=== PATIENT | female | born 1960 | race Caucasian/White ===

== ENCOUNTER 2016-11-18 09:24 | Emergency (ER) | payer MEDICARE, MEDICAID ==
[~2016-11-18] VITALS: Ht 175.3 cm; Wt 84.0 kg
[~2016-11-18 09:24] MED LIST: CLON1TAB PO; DEPA500T3 PO; IBUP-232 PO; OMEP20TA PO; TAMO20TA6 PO; VENL75TA PO; VENTAER INH
[2016-11-18 09:32] VITALS: BP 121/82; PULSE 65; RESP 18; TEMP 97.4; O2SAT 100
--- NOTE | 2016-11-18 10:37 | PD ---
HPI Chief Complaint: Headache Time Seen by Provider: 09:54 Travel History International Travel<30 days: No Contact w/Intl Traveler<30days: No Traveled to known affect area: No History of Present Illness HPI This is a 56 year old female who presents to the emergency department with migraine. She reports she woke up with a headache, throbbing, constant, moderate severity associated with nausea and vomiting this morning. She reports she feels shaky and she is sensitive to light. Pt. has had migraines in the past but she has never had as much persistent nausea following her migraines so she came to the hospital. Pt. also has had some loose stools all week. Her roommate was recently diagnosed with a stomach virus last week, and the patient suspects she may have a combination of things causing her symptoms. PFSH Past Medical History Hx Anticoagulant Therapy: No Arthritis: No Asthma: No Autoimmune Disease: No Anxiety: Yes Depression: Yes Heart Rhythm Problems: No Cancer: Yes (LEFT BREAST: 2013) Cardiovascular Problems: No High Cholesterol: Yes Chemotherapy: No Chest Pain: Yes Congestive Heart Failure: No COPD: No Cerebrovascular Accident: No Diabetes: No Diminished Hearing: No Endocrine: No Gastrointestinal Disorders: No GERD: Yes Genitourinary: Yes Headaches: Yes (MIGRAINES) Hiatal Hernia: No Heparin Induced Thrombocytopen: No Hypertension: No Immune Disorder: No Implanted Vascular Access Dvce: No Kidney Stones: No Musculoskeletal: Yes (HX OF TORN ROTATOR CUFF) Neurologic: No Psychiatric: Yes (panic disorder, anorexia as teen) Reproductive: No Respiratory: No Immunizations Current: Yes Migraines: Yes Radiation Therapy: Yes Renal Failure: No Seizures: No Sickle Cell Disease: No Sleep Apnea: Yes Thyroid Disease: No Ulcer: Yes (YOUNGER) Influenza Vaccination: No ?: Not LMP: Ayesha- Menopausal: Yes : 0 Past Surgical History Abdominal Surgery: No AICD: No Arteriovenous Shunt: No Cardiac Surgery: No Ear Surgery: No Endocrine Surgery: No Eye Surgery: No Genitourinary Surgery: No Gynecologic Surgery: No Hysterectomy: No Insulin Pump: Yes Joint Replacement: No Neurologic Surgery: No Oral Surgery: No Pacemaker: No Thoracic Surgery: No Other Surgery: Yes ( BILATERAL LUMPECTOMY CA LT BREAST) Social History Alcohol Use: Yes (RARE) Tobacco Use: Yes (1 PPD) Substance Use: No Allergies-Medications (Allergen,Severity, Reaction): Coded Allergies: Codeine (Verified Allergy, Mild, Rash, 11/18/16) Sulfa (Verified Allergy, Mild, SKIN RASH, 11/18/16) Uncoded Allergies: TAPE (Allergy, Mild, BLISTERS, 09/12/16) . Reported Meds & Prescriptions Reported Meds & Active Scripts Active Reported Tamoxifen (Tamoxifen Citrate) 20 Mg Tab 20 Mg PO DAILY Effexor (Venlafaxine HCl) 75 Mg Tab 75 Mg PO HS Depakote ER (Divalproex Sodium) 500 Mg Antoni 500 Mg PO HS Clonazepam 1 Mg Tab 1 Mg PO HS Review of Systems Except as stated in HPI: all other systems reviewed are Neg Physical Exam Narrative GENERAL:Well appearing, no acute distress SKIN: Warm and dry. HEAD: Atraumatic. Normocephalic. EYES: Pupils equal and round. No injection or drainage. ENT: Moist mucous membranes NECK: Trachea midline. CARDIOVASCULAR: Regular rate and rhythm. No murmur appreciated. RESPIRATORY: Clear to auscultation. Breath sounds equal bilaterally. GASTROINTESTINAL: Abdomen soft, non-tender, nondistended. MUSCULOSKELETAL: No obvious deformities. NEUROLOGICAL: Awake and alert. No obvious cranial nerve deficits. Moving all extremities. PSYCHIATRIC: Appropriate mood and affect; insight and judgment normal. Data Data Last Documented VS Vital Signs Date Time Temp Pulse Resp B/P Pulse Ox O2 Delivery O2 Flow Rate FiO2 11/18/16 09:32 97.4 65 18 121/82 100 Orders Prochlorperazine Inj (Compazine Inj) (11/18/16 10:45) Diphenhydramine Inj (Benadryl Inj) (11/18/16 10:45) Sodium Chlor 0.9% 1000 Ml Inj (Ns 1000 M (11/18/16 10:45) Ketorolac Inj (Toradol Inj) (11/18/16 10:45) Complete Blood Count With Diff (11/18/16 11:00) Comprehensive Metabolic Panel (11/18/16 11:00) Labs Laboratory Tests Test 11/18/16 11:18 White Blood Count 6.9 TH/MM3 Red Blood Count 4.15 MIL/MM3 Hemoglobin 12.4 GM/DL Hematocrit 37.6 % Mean Corpuscular Volume 90.7 FL Mean Corpuscular Hemoglobin 30.0 PG Mean Corpuscular Hemoglobin 33.1 % Concent Red Cell Distribution Width 12.2 % Platelet Count 177 TH/MM3 Mean Platelet Volume 8.1 FL Neutrophils (%) (Auto) 62.7 % Lymphocytes (%) (Auto) 30.5 % Monocytes (%) (Auto) 5.4 % Eosinophils (%) (Auto) 0.7 % Basophils (%) (Auto) 0.7 % Neutrophils # (Auto) 4.4 TH/MM3 Lymphocytes # (Auto) 2.1 TH/MM3 Monocytes # (Auto) 0.4 TH/MM3 Eosinophils # (Auto) 0.0 TH/MM3 Basophils # (Auto) 0.0 TH/MM3 CBC Comment DIFF FINAL Differential Comment Sodium Level 147 MEQ/L Potassium Level 4.2 MEQ/L Chloride Level 113 MEQ/L Carbon Dioxide Level 25.8 MEQ/L Anion Gap 8 MEQ/L Blood Urea Nitrogen 13 MG/DL Creatinine 0.81 MG/DL Estimat Glomerular Filtration 74 ML/MIN Rate Random Glucose 100 MG/DL Calcium Level 7.7 MG/DL Total Bilirubin 0.2 MG/DL Aspartate Amino Transf 10 U/L (AST/SGOT) Alanine Aminotransferase 16 U/L (ALT/SGPT) Alkaline Phosphatase 33 U/L Total Protein 5.7 GM/DL Albumin 2.9 GM/DL [facility] Medical Decision Making Medical Screen Exam Complete: Yes Emergency Medical Condition: Yes Interpretation(s) Afebrile, no tachycardia, normotensive No leukocytosis Mild hypernatremia, low albumin Differential Diagnosis Migraine, tension headache, dehydration, gastroenteritis Narrative Course This is a 56-year-old female who has a history of migraines who presents to the emergency department with headache associated with vomiting and loose stools. Her roommate was sick with a GI bug earlier this week. She has a normal neurologic exam. She is placed on a monitor and an IV was established. Labs were obtained which were unremarkable. She was given Compazine, Toradol and Benadryl as well as IV hydration. She feels much better. I think she is appropriate for outpatient symptomatic management. Patient was discharged home. Diagnosis Primary Impression: Migraine Qualified Code: G43.009 - Migraine without aura and without status migrainosus , not intractable Additional Impression: Gastroenteritis Patient Instructions: General Instructions Additional Instructions: If you develop lightheadedness, dizziness, persistent vomiting, inability to eat , or severe abdominal pain return to the emergency department. Followup with your primary care physician in 2-3 days if your symptoms have not resolved. Wash your hands agressively after using the restroom as to not spread your illness to others. Do not return to work until your symptoms have resolved. Take Zofran as needed for nausea. Med/Other Pt SpecificInfo: Prescription(s) given Scripts Naproxen 500 Mg [id number] Mg PO BID PRN (PAIN SCALE 4 TO 10) #20 TAB Prov:Yamilka Hanks MD 11/18/16 Ondansetron Odt (Zofran Odt)4 Mg Tab4 Mg SL Q6HR PRN (Nausea/Vomiting) #15 TAB Prov:Yamilka Hanks MD 11/18/16 Disposition: 01 DISCHARGE HOME Condition: Stable Yamilka Hanks MD Nov 18, 2016 10:31
[2016-11-18] MEDS ORDERED: SODIUM CHLOR 0.9% 1000 ML INJ 1,000 ML IV ONE (10:45)
[2016-11-18] MEDS ORDERED: PROCHLORPERAZINE INJ 10 MG/2 ML VIAL IVS ONE (10:45)
[2016-11-18] MEDS ORDERED: KETOROLAC TROMETHAMINE 30 MG/ML (IVP) VIAL IV PUSH ONE (10:45)
[2016-11-18] MEDS ORDERED: diphenhydrAMINE HCL 50 MG/ML VIAL IV PUSH ONE (10:45)
[2016-11-18 11:25] LABS: AUTOMATED NEUTROPHIL # 4.4 TH/MM3 (1.8-7.7); BASOPHIL % 0.7 % (0.0-2.0); EOSINOPHIL % 0.7 % (0.0-4.0); HEMATOCRIT 37.6 % (35.0-46.0); HEMO FLAGS DIFF FINAL; LYMPH % 30.5 % (9.0-44.0); LYMPHOCYTE # 2.1 TH/MM3 (1.0-4.8); MEAN CELL VOLUME 90.7 FL (80.0-100.0); MEAN CORPUSCULAR HGB CONC 33.1 % (32.0-36.0); MONO % 5.4 % (0.0-8.0); NEUT % 62.7 % (16.0-70.0); PLATELET COUNT 177 TH/MM3 (150-450); RED BLOOD COUNT 4.15 MIL/MM3 (4.00-5.30); RED CELL DISTRIBUTION WIDTH 12.2 % (11.6-17.2); WHITE BLOOD COUNT 6.9 TH/MM3 (4.0-11.0)
[2016-11-18 11:33] LABS: CHLORIDE 113 MEQ/L (98-107); POTASSIUM 4.2 MEQ/L (3.5-5.1); SODIUM (NA) 147 MEQ/L (136-145)
[2016-11-18 11:37] LABS: ANION GAP 8 MEQ/L (5-15); BICARBONATE 25.8 MEQ/L (21.0-32.0); BLOOD UREA NITROGEN 13 MG/DL (7-18)
[2016-11-18 11:40] LABS: ALT (GPT) 16 U/L (10-53); AST (GOT) 10 U/L (15-37); GLOMERULAR FILTRATION RATE 74 ML/MIN (>89)
[2016-11-18 11:41] LABS: TOTAL BILIRUBIN ADULT 0.2 MG/DL (0.2-1.0)
[2016-11-18 11:42] LABS: ALKALINE PHOSPHATASE 33 U/L (45-117)
[2016-11-18] MEDS ORDERED: ZOFR4TAB3 SL (11:58)
[2016-11-18] MEDS ORDERED: NAPR500T PO (11:58)
[2016-11-18 12:28] VITALS: BP 129/78; RESP 18
== END 2016-11-18 12:39 | disposition home or self-care (01) ==
LOC: PHED 09:24
DX: G43.909 Migraine, unspecified, not intractable, without status migrainosus (principal); K52.9 Noninfective gastroenteritis and colitis, unspecified; E78.00 Pure hypercholesterolemia, unspecified; G47.30 Sleep apnea, unspecified; F17.210 Nicotine dependence, cigarettes, uncomplicated
CPT/HCPCS: 80053; 85025; 96361; 96374; 96375; 99284; J0780; J1200; J1885; J7030

== ENCOUNTER 2016-12-01 17:41 | Emergency (ER) | payer MEDICARE, MEDICAID ==
[~2016-12-01] VITALS: Ht 175.3 cm; Wt 81.5 kg
[~2016-12-01 17:41] MED LIST changes: -IBUP-232 PO; +NAPR500T PO; -OMEP20TA PO; -VENTAER INH; +ZOFR4TAB3 SL
[2016-12-01 18:09] VITALS: BP 121/72; PULSE 72; RESP 16; TEMP 98.1; O2SAT 98
--- NOTE | 2016-12-01 18:36 | PD ---
HPI Chief Complaint: Cold / Flu Symptoms Time Seen by Provider: 18:35 Travel History International Travel<30 days: No Contact w/Intl Traveler<30days: No Traveled to known affect area: No History of Present Illness HPI 56-year-old female presents to the emergency department for 2 separate issues. First, the patient states she has had cold symptoms since Friday, 4 days ago. She reports cough, congestion, bodyaches. She does report a fever last night which resolved with Aleve. Patient also states that today, her pitbull hit her in the nose with his head. She reports pain to the nose since then. She denies any bleeding. She does report a history of a broken nose in the past. Patient reports history of migraines, history of breast cancer, anxiety. PFSH Past Medical History Hx Anticoagulant Therapy: No Arthritis: No Asthma: No Autoimmune Disease: No Anxiety: Yes Depression: Yes Heart Rhythm Problems: No Cancer: Yes (LEFT BREAST: 2012) Cardiovascular Problems: No High Cholesterol: Yes Chemotherapy: No Chest Pain: Yes Congestive Heart Failure: No COPD: No Cerebrovascular Accident: No Diabetes: No Diminished Hearing: No Endocrine: No Gastrointestinal Disorders: No GERD: Yes Genitourinary: Yes Headaches: Yes (MIGRAINES) Hiatal Hernia: No Heparin Induced Thrombocytopen: No Hypertension: No Immune Disorder: No Implanted Vascular Access Dvce: No Kidney Stones: No Musculoskeletal: Yes (HX OF TORN ROTATOR CUFF) Neurologic: No Psychiatric: Yes (panic disorder, anorexia as teen) Reproductive: No Respiratory: No Immunizations Current: Yes Migraines: Yes Radiation Therapy: Yes Renal Failure: No Seizures: No Sickle Cell Disease: No Sleep Apnea: Yes Thyroid Disease: No Ulcer: Yes (YOUNGER) Tetanus Vaccination: < 5 Years ?: Not Menopausal: Yes : 0 Past Surgical History Abdominal Surgery: No AICD: No Arteriovenous Shunt: No Cardiac Surgery: No Ear Surgery: No Endocrine Surgery: No Eye Surgery: No Genitourinary Surgery: No Gynecologic Surgery: No Hysterectomy: No Insulin Pump: Yes Joint Replacement: No Neurologic Surgery: No Oral Surgery: No Pacemaker: No Thoracic Surgery: No Other Surgery: Yes ( BILATERAL LUMPECTOMY CA LT BREAST) Social History Alcohol Use: Yes (RARE) Tobacco Use: Yes (1 PPD) Substance Use: No Allergies-Medications (Allergen,Severity, Reaction): Coded Allergies: Codeine (Verified Allergy, Mild, Rash, 2/19/17) Sulfa (Verified Allergy, Mild, SKIN RASH, 12/01/16) Uncoded Allergies: TAPE (Allergy, Mild, BLISTERS, 09/12/16) . Reported Meds & Prescriptions Reported Meds & Active Scripts Active Reported Tamoxifen (Tamoxifen Citrate) 20 Mg Tab 20 Mg PO DAILY Effexor (Venlafaxine HCl) 75 Mg Tab 75 Mg PO HS Depakote ER (Divalproex Sodium) 500 Mg Antoni 500 Mg PO HS Clonazepam 1 Mg Tab 1 Mg PO HS Review of Systems Except as stated in HPI: all other systems reviewed are Neg Physical Exam Narrative GENERAL: Well-developed well-nourished female patient, ambulatory. Afebrile. Vital signs stable. SKIN: Warm and dry. HEAD: Normocephalic. Patient has tenderness over nose without obvious deformity. ENT: Mucosa pink and moist. No erythema or exudates. No uvular edema. No uvular , palatal, or tonsillar deviation. Airway patent. Nasal turbinates appear normal without nasal blood, purulent drainage or septal hematoma. Bilateral tympanic membranes are clear without erythema or perforation. EYES: No scleral icterus. No injection or drainage. NECK: Supple, trachea midline. No JVD or lymphadenopathy. CARDIOVASCULAR: Regular rate and rhythm without murmurs, gallops, or rubs. RESPIRATORY: Breath sounds equal bilaterally. No accessory muscle use. Lungs sounds are clear to auscultation GASTROINTESTINAL: Abdomen soft, non-tender, nondistended. MUSCULOSKELETAL: No cyanosis, or edema. BACK: Nontender without obvious deformity. No CVA tenderness. Data Data Last Documented VS Vital Signs Date Time Temp Pulse Resp B/P Pulse Ox O2 Delivery O2 Flow Rate FiO2 12/01/16 18:09 98.1 72 16 121/72 98 Orders Chest, Pa & Lat (12/01/16 ) Group A Rapid Strep Screen (12/01/16 18:34) Ct Facial Bones W/O Iv Cont (12/01/16 ) Strep Culture (Group A) (12/01/16 18:45) MDM Medical Decision Making Medical Screen Exam Complete: Yes Emergency Medical Condition: Yes Medical Record Reviewed: Yes Differential Diagnosis Viral URI versus strep pharyngitis versus pneumonia versus nasal contusion versus nasal fracture Narrative Course 56-year-old female presents to the emergency department for evaluation of cold symptoms for 4 days as well as nose injury that occurred today. Chest x-ray and strep swab are ordered and pending. CT of the facial bones is ordered and pending. Chest x-ray shows no acute disease. Strep is negative. Ct of the facial bones shows no acute findings. Patient is stable for discharge. She does appear well on exam. Patient started on viral URI and nasal contusion. She she is instructed take Aleve or ibuprofen [id number] follow up with her primary care physician. She is instructed to return for any acute worsening of symptoms. Patient is agreeable. The patient was discharged in stable condition with instructions, including return instructions and follow up instructions. Diagnosis Primary Impression: Upper respiratory infection Qualified Code: J06.9 - Viral upper respiratory tract infection Additional Impression: Nasal contusion Referrals: Primary Care Physician call for appointment Patient Instructions: Contusion in Adults (ED), General Instructions, Upper Respiratory Infection (ED) Additional Instructions: Ice for 20 minutes 4-5 times daily. [id number] Tylenol/ibuprofen as needed for pain. Follow-up with your primary care physician. Return to the emergency department for any acute worsening of symptoms. Med/Other Pt SpecificInfo: No Change to Meds Disposition: 01 DISCHARGE HOME Condition: Stable ElliottElizabeth Dec 01, 2016 18:36
--- NOTE | 2016-12-01 19:33 | RADHPO ---
EXAM DATE/TIME: 12/01/2016 18:56 [facility] COMPARISON: No previous studies available for comparison. INDICATIONS : Mid facial trauma. RADIATION DOSE: 29.99 CTDIvol (mGy) MEDICAL HISTORY : Carcinoma, breast. Nose fracture. Fibromyalgia. SURGICAL HISTORY : None. ENCOUNTER: Initial ACUITY: 1 day PAIN SCORE: 7/10 LOCATION: facial TECHNIQUE: Volumetric scanning of the facial bones was performed. Using automated exposure control and adjustme nt of the mA and/or kV according to patient size, radiation dose was kept as low as reasonably achiev able to obtain optimal diagnostic quality images. FINDINGS: ORBITS: The orbital and infraorbital osseous structures are intact. The retroconal structures have a normal configuration. No radiopaque foreign bodies are seen. NASAL BONE: The nasal bone and maxillary spine are intact ZYGOMATIC ARCHES: Symmetric without evidence of fracture. SINUSES: The maxillary, ethmoid and frontal sinuses are intact. No air-fluid levels seen. NASAL CAVITY: The nasal septum is intact and midline. The lacrimal ducts are intact. SOFT TISSUES: No radiopaque foreign bodies seen. No soft-tissue swelling is seen. INTRACRANIAL: No intracranial air seen. CRIBIFORM PLATE: Grossly intact. CONCLUSION: 1. No acute findings. Moise Mata MD on December 01, 2016 at 19:29 Board Certified Radiologist. This report was verified electronically.
--- NOTE | 2016-12-01 19:35 | RADHPO ---
EXAM DATE/TIME: 12/01/2016 18:52 [facility] COMPARISON: No previous studies available for comparison. INDICATIONS : Congestion. Cough. MEDICAL HISTORY : None. SURGICAL HISTORY : None. ENCOUNTER: Initial ACUITY: 3 days PAIN SCORE: 6/10 LOCATION: Bilateral chest FINDINGS: PA and lateral views of the chest demonstrate the lungs to be symmetrically aerated without evidence of mass, infiltrate or effusion. The cardiomediastinal contours are unremarkable. Osseous structure s are intact. CONCLUSION: No acute disease. Moise Mata MD on December 01, 2016 at 19:33 Board Certified Radiologist. This report was verified electronically.
[2016-12-01] MEDS ORDERED: KETOROLAC TROMETHAMINE 60 MG/2 ML (IM) VIAL IM ONE (20:00)
== END 2016-12-01 20:03 | disposition home or self-care (01) ==
LOC: PHED 17:41 → PHEFT 20:03
DX: J06.9 Acute upper respiratory infection, unspecified (principal); S00.33XA Contusion of nose, initial encounter; F17.200 Nicotine dependence, unspecified, uncomplicated; W54.1XXA Struck by dog, initial encounter
CPT/HCPCS: 70486; 71020; 87081; 87880; 96372; 99284; J1885

== ENCOUNTER 2016-12-09 20:05 | Emergency (ER) | payer MEDICARE, MEDICAID ==
[~2016-12-09] VITALS: Ht 175.3 cm; Wt 82.2 kg
[~2016-12-09 20:05] MED LIST changes: -NAPR500T PO; -ZOFR4TAB3 SL
[2016-12-09] MEDS ORDERED: SODIUM CHLOR 0.9% 1000 ML INJ 1,000 ML IV SCH (20:13)
[2016-12-09] MEDS ORDERED: diphenhydrAMINE HCL 50 MG/ML VIAL IM ONE (20:15)
[2016-12-09] MEDS ORDERED: methylPREDNISolone SOD SUCC 125 MG/2 ML VIAL IM ONE (20:15)
[2016-12-09] MEDS ORDERED: EPINEPHrine HCL (1:1000) 1 MG/ML VIAL IM ONE (20:15)
[2016-12-09] MEDS ORDERED: RESP: ALBUTEROL 2.5 MG/IPRATROPIUM 0.5 MG NEB (SCH) INH (20:15)
[2016-12-09] MEDS ORDERED: SODIUM CHLORIDE 0.9% FLUSH 5 ML FLUSH IVF PRN (20:15)
[2016-12-09 20:18] VITALS: BP 116/67; PULSE 77; RESP 18; TEMP 98; O2SAT 99
--- NOTE | 2016-12-09 21:01 | PD ---
HPI Chief Complaint: Cold / Flu Symptoms Time Seen by Provider: 21:01 Travel History International Travel<30 days: No Contact w/Intl Traveler<30days: No Traveled to known affect area: No History of Present Illness HPI 56-year-old female coming in with 2 week history of cough and upper respiratory symptoms which is getting progressively worse over the past several days. Patient has frontal headache, congestion, postnasal drip, throat irritation and instructed cough worse at night. Patient is a smoker but denies wheezing or significant shortness of breath except when she lays down. She denies fever or chills. No nausea vomiting or diarrhea. No reflux. Patient is allergic to codeine, sulfa, and tape. PFSH Past Medical History Hx Anticoagulant Therapy: No Arthritis: No Asthma: No Autoimmune Disease: No Anxiety: Yes Depression: Yes Heart Rhythm Problems: No Cancer: Yes (LEFT BREAST: 2013) Cardiovascular Problems: No High Cholesterol: Yes Chemotherapy: No Chest Pain: Yes Congestive Heart Failure: No COPD: No Cerebrovascular Accident: No Diabetes: No Diminished Hearing: No Endocrine: No Gastrointestinal Disorders: No GERD: Yes Genitourinary: Yes Headaches: Yes (MIGRAINES) Hiatal Hernia: No Heparin Induced Thrombocytopen: No Hypertension: No Immune Disorder: No Implanted Vascular Access Dvce: No Kidney Stones: No Musculoskeletal: Yes (HX OF TORN ROTATOR CUFF) Neurologic: No Psychiatric: Yes (panic disorder, anorexia as teen) Reproductive: No Respiratory: No Immunizations Current: Yes Migraines: Yes Radiation Therapy: Yes Renal Failure: No Seizures: No Sickle Cell Disease: No Sleep Apnea: Yes Thyroid Disease: No Ulcer: Yes (YOUNGER) ?: Not Menopausal: Yes : 0 Past Surgical History Abdominal Surgery: No AICD: No Arteriovenous Shunt: No Cardiac Surgery: No Ear Surgery: No Endocrine Surgery: No Eye Surgery: No Genitourinary Surgery: No Gynecologic Surgery: No Hysterectomy: No Insulin Pump: Yes Joint Replacement: No Neurologic Surgery: No Oral Surgery: No Pacemaker: No Thoracic Surgery: No Other Surgery: Yes ( BILATERAL LUMPECTOMY CA LT BREAST) Social History Alcohol Use: Yes (RARE) Tobacco Use: Yes (1 PPD) Substance Use: No Allergies-Medications (Allergen,Severity, Reaction): Coded Allergies: Codeine (Verified Allergy, Mild, Rash, 12/09/16) Sulfa (Verified Allergy, Mild, SKIN RASH, 12/09/16) Uncoded Allergies: TAPE (Allergy, Mild, BLISTERS, 09/12/16) . Reported Meds & Prescriptions Reported Meds & Active Scripts Active Prednisone 20 Mg Tab 20 Mg PO DAILY Flonase Allergy Relief Children Nasal [place] (Fluticasone Nasal [place]) 50 Mcg/ Act [place] 2 [place] EACH NARE DAILY 50 mcg/spray Amoxicillin 875 Mg Tab 875 Mg PO BID Ventolin Hfa 18 GM Inh (Albuterol Sulfate) 90 Mcg/Act Aer 2 Puff INH Q4-6H PRN Reported Tamoxifen (Tamoxifen Citrate) 20 Mg Tab 20 Mg PO DAILY Effexor (Venlafaxine HCl) 75 Mg Tab 75 Mg PO HS Depakote ER (Divalproex Sodium) 500 Mg Antoni 500 Mg PO HS Clonazepam 1 Mg Tab 1 Mg PO HS Review of Systems Except as stated in HPI: all other systems reviewed are Neg General / Constitutional: No: Fever, Chills Eyes: No: Visual changes HENT: Positive: Headaches (frontal sinus), Sore Throat, Rhinitis, Rhinorrhea, Congestion, No: Vertigo, Lightheadedness, Nosebleed, Neck Stiffness, Neck Pain , Masses, Gingival Bleeding, Dental Difficulties, Ear Discharge, Earache Cardiovascular: No: Chest Pain or Discomfort Respiratory: Positive: Cough, Shortness of Breath, Wheezing (intermittently.), No: Sneezing, Orthopnea, Hemoptysis, Night Sweats, Pleuritic Pain Gastrointestinal: No: Nausea, Vomiting, Diarrhea, Abdominal Pain Genitourinary: No: Dysuria Musculoskeletal: No: Pain Skin: No Rash Neurologic: No: Weakness Psychiatric: No: Depression Endocrine: No: Polydipsia Hematologic/Lymphatic: No: Easy Bruising Physical Exam Narrative GENERAL: Patient appears no acute distress. SKIN: Warm and dry. Normal color. Normal turgor. HEAD: Atraumatic. Normocephalic. EYES: Pupils equal and round. No scleral icterus. No injection or drainage. ENT: No nasal bleeding or discharge. Mucous membranes pink and moist. Patient has moderate sinus tenderness to percussion and palpation bilaterally both frontal and maxillary sinuses. Pharynx is erythematous with injection cobblestoning and obvious postnasal drip noted. No significant lymphadenopathy or swelling is noted. TMs are clear bilaterally. NECK: Trachea midline. Supple and nontender with no significant lymphadenopathy. CARDIOVASCULAR: Regular rate and rhythm. RESPIRATORY: No accessory muscle use. Coarse without wheeze to auscultation. Breath sounds equal bilaterally. GASTROINTESTINAL: Abdomen soft, non-tender, nondistended. Hepatic and splenic margins not palpable. MUSCULOSKELETAL: Extremities without clubbing, cyanosis, or edema. No obvious deformities. NEUROLOGICAL: Awake and alert. No obvious cranial nerve deficits. Motor grossly within normal limits. Five out of 5 muscle strength in the arms and legs. Normal speech. PSYCHIATRIC: Appropriate mood and affect; insight and judgment normal. Data Data Last Documented VS Vital Signs Date Time Temp Pulse Resp B/P Pulse Ox O2 Delivery O2 Flow Rate FiO2 12/09/16 21:02 16 99 Room Air 12/09/16 20:18 98.0 77 116/67 Orders Diphenhydramine Inj (Benadryl Inj) (12/09/16 20:15) Methylprednisolone So Succ Inj (Solumedr (12/09/16 20:15) Albuterol-Ipratropium Neb (Duoneb Neb) (12/09/16 20:15) Sodium Chlor 0.9% 1000 Ml Inj (Ns 1000 M (12/09/16 20:13) Sodium Chloride 0.9% Flush (Ns Flush) (12/09/16 20:15) Epinephrine (1:1000) Inj (Adrenalin (1:1 (12/09/16 20:15) MDM Medical Decision Making Medical Screen Exam Complete: Yes Emergency Medical Condition: Yes Differential Diagnosis Upper respiratory infection. Cough. Postnasal drip. Sinusitis. Bronchitis. Narrative Course Patient is medically stable at time of exam. Patient is given 40 mg prednisone by mouth now. Patient is treated with amoxicillin 875 twice a day 10 days. Patient is given Ventolin metered-dose inhaler 2 puffs every 4-6 hours when necessary wheeze or cough. Patient is started on Flonase nasal spray 2 sprays each nostril daily. Patient will be continued on prednisone 20 mg daily for the next 5 days. Patient is encouraged to quit smoking as soon as possible. Patient follow with her primary care physician or return to emergency Department with worsening symptoms as necessary. Diagnosis Primary Impression: Sinusitis, acute Qualified Code: J01.40 - Acute non-recurrent pansinusitis Additional Impressions: Tobacco abuse Bronchitis Patient Instructions: Cigarette Smoking and Your Health (GEN), General Instructions, How to Use a Metered-Dose Inhaler (ED), Sinusitis (ED) Additional Instructions: Patient is given 40 mg prednisone by mouth now. Patient is treated with amoxicillin 875 twice a day 10 days. Patient is given Ventolin metered-dose inhaler 2 puffs every 4-6 hours when necessary wheeze or cough. Patient is started on Flonase nasal spray 2 sprays each nostril daily. Patient will be continued on prednisone 20 mg daily for the next 5 days. Patient is encouraged to quit smoking as soon as possible. Patient follow with her primary care physician or return to emergency Department with worsening symptoms as necessary. Med/Other Pt SpecificInfo: Prescription(s) given Scripts Prednisone 20 Mg Tab20 Mg PO DAILY #5 TAB Prov:Pablo Hopper MD 12/09/16 Fluticasone Nasal [place] (Flonase Allergy Relief Children Nasal [place])50 Mcg/Act Spray2 [place] EACH NARE DAILY #1 BOTTLE 50 mcg/spray Prov:Pablo Hopper MD 12/09/16 Amoxicillin 875 Mg Frv320 Mg PO BID #20 TAB Prov:Pablo Hopper MD 12/09/16 Albuterol 18 GM Inh (Ventolin Hfa 18 GM Inh)90 Mcg/Act Aer2 Puff INH Q4-6H PRN ( SHORTNESS OF BREATH) #1 INHALER Prov:Pablo Hopper MD 12/09/16 Disposition: 01 DISCHARGE HOME Condition: Stable Adrien Blanca Dec 09, 2016 21:01
[2016-12-09] MEDS ORDERED: PRED20 PO (21:07)
[2016-12-09] MEDS ORDERED: VENTAER INH ×2 (21:07→21:28)
[2016-12-09] MEDS ORDERED: AMOX875T PO (21:07)
[2016-12-09] MEDS ORDERED: FLUT1SPR9 EACH NARE (21:07)
[2016-12-09] MEDS ORDERED: IBUP-988 PO (21:10)
[2016-12-09] MEDS ORDERED: OMEP20TA PO (21:10)
[2016-12-09] MEDS ORDERED: predniSONE 20 MG TAB PO ONE (21:15)
== END 2016-12-09 21:30 | disposition home or self-care (01) ==
LOC: PHEFT 20:05
DX: J01.40 Acute pansinusitis, unspecified (principal); F17.210 Nicotine dependence, cigarettes, uncomplicated; J40 Bronchitis, not specified as acute or chronic
CPT/HCPCS: 99283; J7512

== ENCOUNTER 2017-05-05 15:57 | Emergency (ER) | payer MEDICAID, MEDICARE ==
[~2017-05-05] VITALS: Ht 175.3 cm; Wt 79.5 kg
[~2017-05-05 15:57] MED LIST changes: +AMOX875T PO; +FLUT1SPR9 EACH NARE; +IBUP-988 PO; +OMEP20TA PO; +PRED20 PO; +VENTAER INH
[2017-05-05 16:07] VITALS: BP 121/72; PULSE 83; RESP 16; TEMP 98.5; O2SAT 96
--- NOTE | 2017-05-05 16:21 | PD ---
HPI Chief Complaint: ENT Complaint Time Seen by Provider: 16:15 Travel History International Travel<30 days: No Contact w/Intl Traveler<30days: No Traveled to known affect area: No History of Present Illness HPI 56-year-old female presents to the emergency room for evaluation of sore throat , chills, body aches, and itchy groin rash. Symptoms started about 2 weeks ago and have been intermittent since then. Sore throat varies in location and intensity; sometimes it is unilateral and symptoms bilateral. She has not taken anything or done anything for her symptoms. Denies direct exposure to sick contacts. States the rash started more recently. Patient reports feeling sweaty but has not actually taken her temperature. Reports mild cough and congestion. PFSH Past Medical History Hx Anticoagulant Therapy: No Arthritis: No Asthma: No Autoimmune Disease: No Anxiety: Yes Depression: Yes Heart Rhythm Problems: No Cancer: Yes (LEFT BREAST: 2013) Cardiovascular Problems: No High Cholesterol: Yes Chemotherapy: No Chest Pain: Yes Congestive Heart Failure: No COPD: No Cerebrovascular Accident: No Diabetes: No Diminished Hearing: No Endocrine: No Gastrointestinal Disorders: No GERD: Yes Genitourinary: Yes Headaches: Yes (MIGRAINES) Hiatal Hernia: No Heparin Induced Thrombocytopen: No Hypertension: No Immune Disorder: No Implanted Vascular Access Dvce: No Kidney Stones: No Musculoskeletal: Yes (HX OF TORN ROTATOR CUFF) Neurologic: No Psychiatric: Yes (panic disorder, anorexia as teen) Reproductive: No Respiratory: No Immunizations Current: Yes Migraines: Yes Radiation Therapy: Yes Renal Failure: No Seizures: No Sickle Cell Disease: No Sleep Apnea: Yes Thyroid Disease: No Ulcer: Yes (YOUNGER) Menopausal: Yes : 0 Past Surgical History Abdominal Surgery: No AICD: No Arteriovenous Shunt: No Cardiac Surgery: No Ear Surgery: No Endocrine Surgery: No Eye Surgery: No Genitourinary Surgery: No Gynecologic Surgery: No Hysterectomy: No Insulin Pump: Yes Joint Replacement: No Neurologic Surgery: No Oral Surgery: No Pacemaker: No Thoracic Surgery: No Other Surgery: Yes ( BILATERAL LUMPECTOMY CA LT BREAST) Social History Alcohol Use: Yes (RARE) Tobacco Use: Yes (1/2 PPD) Substance Use: No Allergies-Medications (Allergen,Severity, Reaction): Coded Allergies: Codeine (Verified Allergy, Mild, Rash, 05/05/17) Sulfa (Verified Allergy, Mild, SKIN RASH, 05/05/17) Uncoded Allergies: TAPE (Allergy, Mild, BLISTERS, 09/12/16) . Reported Meds & Prescriptions Reported Meds & Active Scripts Active Magic Mouthwash Pediatric/Adult Liq (Lidocaine/Diphenhydr/Alum/Mg/Simeth) 60 Ml Susp 5 Ml SWISH-SWAL ACHS Each 5mL contains: Diphenydramine 4.5mg, Viscous Lidocaine 2% 10mg, Maalox Advanced Regular Strength 2.7ml Lotrimin AF Topical (Clotrimazole) 1% Cream 1 Applic TOPICAL BID Reported Advil (Ibuprofen) 200 Mg Tab 400 Mg PO Q8H PRN Omeprazole 20 Mg Tab 20 Mg PO DAILY Tamoxifen (Tamoxifen Citrate) 20 Mg Tab 20 Mg PO DAILY Effexor (Venlafaxine HCl) 75 Mg Tab 75 Mg PO HS Depakote ER (Divalproex Sodium) 500 Mg Antoni 500 Mg PO HS Clonazepam 1 Mg Tab 1 Mg PO HS Review of Systems Except as stated in HPI: all other systems reviewed are Neg Physical Exam Narrative GENERAL: Well-nourished, well-developed female in no acute distress. Afebrile. Ambulatory. SKIN: Focused skin assessment warm/dry. Slightly raised erythematous annular lesions with central clearing to bilateral groin with satellite lesions. HEAD: Normocephalic. EYES: No scleral icterus. No injection or drainage. NECK: Supple, trachea midline. No JVD or lymphadenopathy. ET: Mucosa pink and moist. Mild erythema without edema or exudates. No uvular edema. No uvular, palatal, or tonsillar deviation. Airway patent. EARS: Bilateral pinnae and external canals appear within normal limits. Bilateral tympanic membranes without erythema, dullness or perforation. CARDIOVASCULAR: Regular rate and rhythm without murmurs, gallops, or rubs. RESPIRATORY: Breath sounds equal bilaterally. No accessory muscle use. Data Data Last Documented VS Vital Signs Date Time Temp Pulse Resp B/P Pulse Ox O2 Delivery O2 Flow Rate FiO2 05/05/17 16:07 98.5 83 16 121/72 96 Orders Group A Rapid Strep Screen (05/05/17 16:15) Strep Culture (Group A) (05/05/17 16:20) MDM Medical Decision Making Medical Screen Exam Complete: Yes Emergency Medical Condition: Yes Medical Record Reviewed: Yes Differential Diagnosis Viral pharyngitis, mononucleosis, streptococcal pharyngitis, scarlet fever, tinea cruris Narrative Course 56-year-old female presents to the emergency room for evaluation of itchy rash to her groin and sore throat for the past 2 weeks. Denies subjective fevers. Reports chills and sweats. Vital signs stable in the emergency room. Physical exam reveals mild erythema without edema or exudates. There is a slightly raised erythematous annular rash with satellite lesions on bilateral groin consistent with tinea cruris. Rapid strep is negative. Patient will be discharged with prescriptions for Magic mouthwash and Lotrimin cream. Told to follow-up the primary care physician or return for worsening symptoms. She understands and agrees to plan. Diagnosis Primary Impression: Acute viral pharyngitis Additional Impression: Tinea cruris Referrals: Primary Care Physician Patient Instructions: General Instructions, Jock Itch (ED), Pharyngitis (ED) Additional Instructions: Rest and drink plenty of fluids. Use Magic mouthwash, as needed for pain. Apply Lotrimin cream as directed, for up to 2-4 weeks. Follow-up with a primary care physician. Return to the emergency room for worsening symptoms. Med/Other Pt SpecificInfo: Prescription(s) given Scripts [id number]-Kqwaqjvmh-Fky-Alum-Simeth Liq (Magic Mouthwash Pediatric/Adult Liq)60 Ml Susp5 Ml SWISH-SWAL ACHS #60 ML Ref 0 Each 5mL contains: Diphenydramine 4.5mg, Viscous Lidocaine 2% 10mg, Maalox Advanced Regular Strength 2.7ml Prov:Yobani Sol MD 05/05/17 Clotrimazole Topical (Lotrimin AF Topical)1% Cream1 Applic TOPICAL BID #1 TUBE Ref 0 Prov:Yobani Sol MD 05/05/17 Disposition: 01 DISCHARGE HOME Condition: Stable Alyce Multani May 05, 2017 16:21
[2017-05-05] MEDS ORDERED: MAGICPED SWISH-SWAL (16:44)
[2017-05-05] MEDS ORDERED: LOTR1CRE TOPICAL (16:44)
== END 2017-05-05 17:18 | disposition home or self-care (01) ==
LOC: PHEFT 15:57
DX: J02.9 Acute pharyngitis, unspecified (principal); B35.6 Tinea cruris; F17.200 Nicotine dependence, unspecified, uncomplicated
CPT/HCPCS: 87081; 87880; 99284

== ENCOUNTER 2017-06-09 22:20 | Emergency (ER) | payer MEDICARE, OTHER ==
[~2017-06-09] VITALS: Ht 175.3 cm; Wt 80.6 kg
[~2017-06-09 22:20] MED LIST changes: -AMOX875T PO; -FLUT1SPR9 EACH NARE; +LOTR1CRE TOPICAL; +MAGICPED SWISH-SWAL; -PRED20 PO; -VENTAER INH
[2017-06-09 22:23] VITALS: BP 136/73; PULSE 78; RESP 16; TEMP 99; O2SAT 98
[2017-06-09] MEDS ORDERED: PENI250T PO (22:35)
--- NOTE | 2017-06-09 22:35 | PD ---
HPI Chief Complaint: Oral / Dental Pain or Problem Time Seen by Provider: 22:30 Travel History International Travel<30 days: No Contact w/Intl Traveler<30days: No Traveled to known affect area: No History of Present Illness HPI 56-year-old female presents emergency department for evaluation of right lower dental pain and facial swelling. Patient reports she had a fractured decayed tooth at the site and has had intermittent swelling and pain for the last 6 months. She reports the pain is worsened over the last 3 days which prompted her visit today. She denies fever or chills. Pain is constant, nonradiating, no aggravating or alleviating factors, severity /10. PFSH Past Medical History Hx Anticoagulant Therapy: No Arthritis: No Asthma: No Autoimmune Disease: No Anxiety: Yes Depression: Yes Heart Rhythm Problems: No Cancer: Yes (breast 4 years ago) Cardiovascular Problems: No High Cholesterol: Yes Chemotherapy: No Chest Pain: Yes Congestive Heart Failure: No COPD: No Cerebrovascular Accident: No Diabetes: No Diminished Hearing: No Endocrine: No Gastrointestinal Disorders: No GERD: Yes Genitourinary: Yes Headaches: Yes (MIGRAINES) Hiatal Hernia: No Heparin Induced Thrombocytopen: No Hypertension: No Immune Disorder: No Implanted Vascular Access Dvce: No Kidney Stones: No Musculoskeletal: Yes (HX OF TORN ROTATOR CUFF) Neurologic: No Psychiatric: Yes (panic disorder, anorexia as teen) Reproductive: No Respiratory: No Immunizations Current: Yes Migraines: Yes Radiation Therapy: Yes Renal Failure: No Seizures: No Sickle Cell Disease: No Sleep Apnea: Yes Thyroid Disease: No Ulcer: Yes (YOUNGER) Tetanus Vaccination: < 5 Years Influenza Vaccination: No ?: Not Menopausal: Yes : 0 Past Surgical History Abdominal Surgery: No AICD: No Arteriovenous Shunt: No Cardiac Surgery: No Ear Surgery: No Endocrine Surgery: No Eye Surgery: No Genitourinary Surgery: No Gynecologic Surgery: No Hysterectomy: No Insulin Pump: Yes Joint Replacement: No Neurologic Surgery: No Oral Surgery: No Pacemaker: No Thoracic Surgery: No Other Surgery: Yes ( BILATERAL LUMPECTOMY CA LT BREAST) Social History Alcohol Use: No Tobacco Use: Yes (10/14 ppd) Substance Use: No Allergies-Medications (Allergen,Severity, Reaction): Coded Allergies: Sulfa (Sulfonamide Antibiotics) (Unverified Allergy, Mild, SKIN RASH, 05/27) codeine (Unverified Allergy, Mild, Rash, 05/27/17) Uncoded Allergies: TAPE (Allergy, Mild, BLISTERS, 09/12/16) . Reported Meds & Prescriptions Reported Meds & Active Scripts Active Magic Mouthwash Pediatric/Adult Liq (Lidocaine/Diphenhydr/Alum/Mg/Simeth) 60 Ml Susp 5 Ml SWISH-SWAL ACHS Each 5mL contains: Diphenydramine 4.5mg, Viscous Lidocaine 2% 10mg, Maalox Advanced Regular Strength 2.7ml Lotrimin AF Topical (Clotrimazole) 1% Cream 1 Applic TOPICAL BID Reported Advil (Ibuprofen) 200 Mg Tab 400 Mg PO Q8H PRN Omeprazole 20 Mg Tab 20 Mg PO DAILY Tamoxifen (Tamoxifen Citrate) 20 Mg Tab 20 Mg PO DAILY Effexor (Venlafaxine HCl) 75 Mg Tab 75 Mg PO HS Depakote ER (Divalproex Sodium) 500 Mg Antoni 500 Mg PO HS Clonazepam 1 Mg Tab 1 Mg PO HS Review of Systems Except as stated in HPI: all other systems reviewed are Neg General / Constitutional: No: Fever Eyes: No: Visual changes HENT: No: Headaches Physical Exam Narrative GENERAL: Well-nourished, well-developed patient. SKIN: Focused skin assessment warm/dry. HEAD: Normocephalic. MOUTH: Mucous membranes moist, no lesions, tongue and gums appear normal. Tooth #27 decayed with surrounding gum erythema and mild swelling. EYES: No scleral icterus. No injection or drainage. NECK: Supple, trachea midline. No JVD or lymphadenopathy. CARDIOVASCULAR: Regular rate and rhythm without murmurs, gallops, or rubs. RESPIRATORY: Breath sounds equal bilaterally. No accessory muscle use. GASTROINTESTINAL: Abdomen soft, non-tender, nondistended. Data Data Last Documented VS Vital Signs Date Time Temp Pulse Resp B/P (MAP) Pulse Ox O2 Delivery O2 Flow Rate FiO2 06/09/17 22:23 99.0 78 16 136/73 (94) 98 MDM Medical Decision Making Medical Screen Exam Complete: Yes Emergency Medical Condition: Yes Differential Diagnosis Dental abscess, dental decay, dental caries, periodontal disease Narrative Course 56-year-old female with chief complaint of right lower dental pain for the last several days. Patient reports she has a decayed and fractured tooth the last 6 months as intermittent episodes of pain and swelling. She denies. Chills. On exam tooth #27 is decayed with surrounding gum erythema and swelling. Patient be treated for dental infection. Struck to the follow-up with dentist. Diagnosis Primary Impression: Dental infection Referrals: Dentist Additional Instructions: Take the medication as prescribed. Take [id number] Motrin 600-800 mg every 6-8 hours Follow-up with a dentist. Scripts Penicillin V Potassium (Penicillin V Potassium) 250 Mg Tab 250 MG PO Q6H for Infection for 28 Days, TAB 0 Refills Prov: Deidra Castro 06/09/17 Disposition: DISCHARGE HOME Condition: Stable Deidra Castro Jun 09, 2017 22:35
[2017-06-09] MEDS ORDERED: KETOROLAC TROMETHAMINE 60 MG/2 ML (IM) VIAL IM ONE (22:45)
== END 2017-06-09 22:39 | disposition home or self-care (01) ==
LOC: PHEFT 22:20
DX: K04.7 Periapical abscess without sinus (principal); K02.9 Dental caries, unspecified; F17.200 Nicotine dependence, unspecified, uncomplicated
CPT/HCPCS: 99283; J1885

== ENCOUNTER 2017-06-24 17:16 | Emergency (ER) | payer MEDICARE, OTHER ==
[~2017-06-24 17:16] MED LIST changes: -IBUP-988 PO; -LOTR1CRE TOPICAL; +PENI250T PO
[2017-06-24 17:34] VITALS: BP 131/63; PULSE 70; RESP 20; TEMP 98.6; O2SAT 98
--- NOTE | 2017-06-24 18:17 | PD ---
HPI Chief Complaint: Cold / Flu Symptoms Time Seen by Provider: 18:02 Travel History International Travel<30 days: No Contact w/Intl Traveler<30days: No Traveled to known affect area: No History of Present Illness HPI The patient is a 57-year-old female who presents emergency department for cough and cold symptoms of 4 days' duration. The patient states her symptoms started 4 days ago with sore throat. The patient thought her sore throat is improving, however, yesterday she developed progressing symptoms including headache, fever as high as 102, sore throat, dry nonproductive cough, and body aches. The patient does note mild nausea but denies any vomiting, diarrhea, or abdominal pain. The patient denies any associated dysuria, frequency, or urgency. The patient does have a history of psychiatric problems for which she takes Depakote and Klonopin, also takes tamoxifen for history of breast cancer. The patient does not have a regular primary physician. The patient does admit to using tobacco. Symptoms are moderate, no known exacerbating factors, alleviated by taking ibuprofen for her headaches. PFSH Past Medical History Hx Anticoagulant Therapy: No Arthritis: No Asthma: No Autoimmune Disease: No Anxiety: Yes Depression: Yes Heart Rhythm Problems: No Cancer: Yes (breast 4 years ago) Cardiovascular Problems: No High Cholesterol: Yes Chemotherapy: No Chest Pain: Yes Congestive Heart Failure: No COPD: No Cerebrovascular Accident: No Diabetes: No Diminished Hearing: No Endocrine: No Gastrointestinal Disorders: No GERD: Yes Genitourinary: Yes Headaches: Yes (MIGRAINES) Hiatal Hernia: No Heparin Induced Thrombocytopen: No Hypertension: No Immune Disorder: No Implanted Vascular Access Dvce: No Kidney Stones: No Musculoskeletal: Yes (HX OF TORN ROTATOR CUFF) Neurologic: No Psychiatric: Yes (panic disorder, anorexia as teen) Reproductive: No Respiratory: No Immunizations Current: Yes Migraines: Yes Radiation Therapy: Yes Renal Failure: No Seizures: No Sickle Cell Disease: No Sleep Apnea: Yes Thyroid Disease: No Ulcer: Yes (YOUNGER) Menopausal: Yes : 0 Past Surgical History Abdominal Surgery: No AICD: No Arteriovenous Shunt: No Cardiac Surgery: No Ear Surgery: No Endocrine Surgery: No Eye Surgery: No Genitourinary Surgery: No Gynecologic Surgery: No Hysterectomy: No Insulin Pump: Yes Joint Replacement: No Neurologic Surgery: No Oral Surgery: No Pacemaker: No Thoracic Surgery: No Other Surgery: Yes ( BILATERAL LUMPECTOMY CA LT BREAST) Social History Alcohol Use: No Tobacco Use: Yes (10/14 ppd) Substance Use: No Allergies-Medications (Allergen,Severity, Reaction): Coded Allergies: Sulfa (Sulfonamide Antibiotics) (Unverified Allergy, Mild, SKIN RASH, 06/09) codeine (Unverified Allergy, Mild, Rash, 06/09/17) Uncoded Allergies: TAPE (Allergy, Mild, BLISTERS, 09/12/16) . Reported Meds & Prescriptions Reported Meds & Active Scripts Active Azithromycin 250 Mg Tab 250 Mg PO DIRECTED Take 2 tabs (500 mg) on day 1 then 1 tab daily x 4 days. Reported Tamoxifen (Tamoxifen Citrate) 20 Mg Tab 20 Mg PO DAILY Effexor (Venlafaxine HCl) 75 Mg Tab 75 Mg PO HS Depakote ER (Divalproex Sodium) 500 Mg Antoni 500 Mg PO HS Clonazepam 1 Mg Tab 0.25 Mg PO HS Review of Systems Except as stated in HPI: all other systems reviewed are Neg General / Constitutional: Positive: Fever HENT: Positive: Headaches, Sore Throat Cardiovascular: No: Chest Pain or Discomfort Respiratory: Positive: Cough, No: Shortness of Breath Gastrointestinal: Positive: Nausea, No: Vomiting, Abdominal Pain Genitourinary: No: Urgency, Frequency, Dysuria Musculoskeletal: Positive: Myalgias Skin: No Rash Physical Exam Narrative GENERAL: Awake, alert, pleasant 57-year-old female who appears her stated age and is in no acute respiratory distress. SKIN: Focused skin assessment warm/dry. HEAD: Atraumatic. Normocephalic. EYES: Pupils equal and round. No scleral icterus. No injection or drainage. ENT: No nasal bleeding or discharge. Oropharynx reveals cobblestoning but no exudate. NECK: Trachea midline. No JVD. No significant anterior cervical lymphadenopathy noted. CARDIOVASCULAR: Regular rate and rhythm. No murmur appreciated. RESPIRATORY: No accessory muscle use. Few scattered rhonchi. GASTROINTESTINAL: Abdomen soft, non-tender, nondistended. No rebound tenderness. MUSCULOSKELETAL: No obvious deformities. No clubbing. No cyanosis. No edema. NEUROLOGICAL: Awake and alert. No obvious cranial nerve deficits. Motor grossly within normal limits. Normal speech. PSYCHIATRIC: Appropriate mood and affect; insight and judgment normal. Data Data Last Documented VS Vital Signs Date Time Temp Pulse Resp B/P (MAP) Pulse Ox O2 Delivery O2 Flow Rate FiO2 06/24/17 17:34 98.6 70 20 131/63 (85) 98 Orders Orders Influenzae A/B Antigen (06/24/17 18:10) Chest, Single Ap (06/24/17 ) MDM Medical Decision Making Medical Screen Exam Complete: Yes Emergency Medical Condition: Yes Medical Record Reviewed: Yes Interpretation(s) Last Impressions Chest X-Ray 06/24/17 0000 Signed Impressions: Service Date/Time: Saturday, June 24, 2017 18:53 - CONCLUSION: No evidence of acute cardiopulmonary disease. Elmo Mcnamara MD Date/Time Source Procedure Growth Status 06/24/17 18:20 Nasal Aspirate Influenza Types A,B Antigen (JEFF) - Final NEGATIVE FOR FLU A AND B ANTIGEN.... Complete Differential Diagnosis Differential diagnosis includes influenza, pneumonia, bronchitis, viral syndrome , viral pharyngitis, strep pharyngitis. Narrative Course chest x-ray was obtained. Influenza screen was sent to lab. The patient was signed out to the oncoming physician at 7 PM a chest x-ray and influenza screen pending. Diagnosis Primary Impression: Viral syndrome Patient Instructions: General Instructions Additional Instructions: Alternate Tylenol and elevation for pain and fevers. Plenty of fluids to stay hydrated. Follow-up with a primary physician. Return if symptoms worsen or progress. Med/Other Pt SpecificInfo: No Change to Meds Scripts Azithromycin (Azithromycin) 250 Mg Tab 250 MG PO DIRECTED for Infection, #6 TAB 0 Refills Take 2 tabs (500 mg) on day 1 then 1 tab daily x 4 days. Prov: Get Costa MD 06/24/17 Disposition: 01 DISCHARGE HOME Condition: Stable Vignesh Louis MD Jun 24, 2017 18:17
--- NOTE | 2017-06-24 19:10 | RADRPT ---
EXAM DATE/TIME: 06/24/2017 18:53 [facility] COMPARISON: CHEST PA & LAT, December 01, 2016, 18:52. INDICATIONS : Short of breath for several days. Cough and fever today. MEDICAL HISTORY : Carcinoma, breast. Fibromyalgia. SURGICAL HISTORY : None. ENCOUNTER: Initial ACUITY: 4 - 6 days PAIN SCORE: 2/10 LOCATION: Bilateral chest FINDINGS: A single view of the chest demonstrates the lungs to be symmetrically aerated without evidence of mas s, infiltrate or effusion. The cardiomediastinal contours are unremarkable. Osseous structures are intact. CONCLUSION: No evidence of acute cardiopulmonary disease. Elmo Mcnamara MD on June 24, 2017 at 19:08 Board Certified Radiologist. This report was verified electronically.
--- NOTE | 2017-06-24 19:20 | PD ---
Data Data Last Documented VS Vital Signs Date Time Temp Pulse Resp B/P (MAP) Pulse Ox O2 Delivery O2 Flow Rate FiO2 06/24/17 17:34 98.6 70 20 131/63 (85) 98 Orders Orders Influenzae A/B Antigen (06/24/17 18:10) Chest, Single Ap (06/24/17 ) MDM Supervised Visit with CANDIE: No Narrative Course Patient care assumed from Dr. Louis at 1900. This is a 57-year-old female who is on tamoxifen for breast cancer presents emergency department cough and GERD home. Afebrile in the emergency department. On my examination TMs are clear, oropharynx is minimally erythematous with tonsils normal and no without discharge and uvula midline. Neck is supple without lymphadenopathy, lungs are clear. No rash. Patient appears well and in no distress. Chest x-ray negative , influenza testing negative. Discussed with the patient azithromycin prescription recommended starting in 7 days if she is not feeling better and follow-up with her primary care physician. She is agreeable to this course of action. Stable for discharge at this time. Diagnosis Primary Impression: Viral syndrome Patient Instructions: General Instructions Additional Instruction: Alternate Tylenol and elevation for pain and fevers. Plenty of fluids to stay hydrated. Follow-up with a primary physician. Return if symptoms worsen or progress. If your still ill after 7 days start azithromycin (see attached prescription.) Med/Other Pt SpecificInfo: Prescription(s) given Scripts Azithromycin (Azithromycin) 250 Mg Tab 250 MG PO DIRECTED for Infection, #6 TAB 0 Refills Take 2 tabs (500 mg) on day 1 then 1 tab daily x 4 days. Prov: Get Costa MD 06/24/17 Disposition: 01 DISCHARGE HOME Condition: Stable Get Costa MD Jun 24, 2017 19:20
[2017-06-24] MEDS ORDERED: AZIT250T3 PO (20:23)
== END 2017-06-24 20:42 | disposition home or self-care (01) ==
LOC: PHEFT 17:16
DX: B34.9 Viral infection, unspecified (principal); F17.210 Nicotine dependence, cigarettes, uncomplicated
CPT/HCPCS: 71010; 87804; 99284

== ENCOUNTER 2017-08-21 10:23 | Emergency (ER) | payer MEDICARE, MEDICAID ==
[~2017-08-21] VITALS: Ht 175.3 cm; Wt 83.0 kg
[~2017-08-21 10:23] MED LIST changes: +BUTA1CAP PO; -MAGICPED SWISH-SWAL; -OMEP20TA PO; -PENI250T PO
[2017-08-21 10:28] VITALS: BP 144/78; PULSE 81; RESP 16; TEMP 98.1; O2SAT 96
[2017-08-21] MEDS ORDERED: BUPIVACAINE/EPINEPHRINE 0.5% PF 30 ML VIAL NERV BLOCK ONE (10:45)
[2017-08-21] MEDS ORDERED: BUPIVACAINE HCL PF 0.5% 30 ML VIAL EPIDURAL ONE (10:45)
[2017-08-21] MEDS ORDERED: BUPIVACAINE/EPINEPHRINE 0.5% PF 30 ML VIAL EPIDURAL ONE (10:45)
[2017-08-21] MEDS ORDERED: BUPIVACAINE HCL PF 0.5% 30 ML VIAL INFIL ONE (10:45)
[2017-08-21] MEDS ORDERED: IBUP-232 PO (10:52)
[2017-08-21] MEDS ORDERED: PENI500T PO (10:52)
--- NOTE | 2017-08-21 10:52 | PD ---
HPI Chief Complaint: Oral / Dental Pain or Problem Time Seen by Provider: 10:36 Travel History International Travel<30 days: No Contact w/Intl Traveler<30days: No Traveled to known affect area: No History of Present Illness HPI 57-year-old female complains of right lower dentalgia for about 1 day. She notes pain radiating to the right ear. Associated symptoms include swelling. She reports piloerection and chills, a typical for her and concerning for potential infection. Onset gradual. Timing constant. She has been unable to follow up with a dentist due to lack of insurance and for financial reasons. Last night she took penicillin 250 mg once before going to bed which did not influence swelling or pain. PFSH Past Medical History Hx Anticoagulant Therapy: No Arthritis: No Asthma: No Autoimmune Disease: No Anxiety: Yes Depression: Yes Heart Rhythm Problems: No Cancer: Yes (breast 4 years ago) Cardiovascular Problems: No High Cholesterol: Yes Chemotherapy: No Chest Pain: Yes Congestive Heart Failure: No COPD: No Cerebrovascular Accident: No Diabetes: No Diminished Hearing: No Endocrine: No Gastrointestinal Disorders: No GERD: Yes Genitourinary: Yes Headaches: Yes (MIGRAINES) Hiatal Hernia: No Heparin Induced Thrombocytopen: No Hypertension: No Immune Disorder: No Implanted Vascular Access Dvce: No Kidney Stones: No Musculoskeletal: Yes (HX OF TORN ROTATOR CUFF) Neurologic: No Psychiatric: Yes (panic disorder, anorexia as teen) Reproductive: No Respiratory: No Immunizations Current: Yes Migraines: Yes Radiation Therapy: Yes Renal Failure: No Seizures: Yes Sickle Cell Disease: No Sleep Apnea: Yes Thyroid Disease: No Ulcer: Yes ?: Not Menopausal: Yes : 0 Past Surgical History Abdominal Surgery: No AICD: No Arteriovenous Shunt: No Cardiac Surgery: No Ear Surgery: No Endocrine Surgery: No Eye Surgery: No Genitourinary Surgery: No Gynecologic Surgery: No Hysterectomy: No Insulin Pump: Yes Joint Replacement: No Neurologic Surgery: No Oral Surgery: No Pacemaker: No Thoracic Surgery: No Other Surgery: Yes ( BILATERAL LUMPECTOMY CA LT BREAST) Social History Alcohol Use: No Tobacco Use: Yes (10/14 ppd) Substance Use: No Allergies-Medications (Allergen,Severity, Reaction): Coded Allergies: Sulfa (Sulfonamide Antibiotics) (Unverified Allergy, Mild, SKIN RASH, 08/21) . codeine (Unverified Allergy, Mild, Rash, 08/21/17) . Uncoded Allergies: TAPE (Allergy, Mild, BLISTERS, 08/21/17) .. Reported Meds & Prescriptions Reported Meds & Active Scripts Active Ibuprofen 600 Mg Tab 600 Mg PO Q8H PRN 5 Days Penicillin V Potassium 500 Mg Tab 500 Mg PO Q8H 10 Days Reported Tamoxifen (Tamoxifen Citrate) 20 Mg Tab 20 Mg PO DAILY Effexor (Venlafaxine HCl) 75 Mg Tab 75 Mg PO HS Depakote ER (Divalproex Sodium) 500 Mg Antoni 500 Mg PO HS Clonazepam 1 Mg Tab 0.25 Mg PO BID Review of Systems Except as stated in HPI: all other systems reviewed are Neg General / Constitutional: Positive: Chills Physical Exam Narrative GENERAL: 57 yo F, WNWD, NAD SKIN: Warm and dry. HEAD: Atraumatic. Normocephalic. EYES: Pupils equal and round. No scleral icterus. No injection or drainage. ENT: No nasal bleeding or discharge. Mucous membranes pink and moist. R lower first premolar is fractured, Barroso II, with appropriate TTP and minimal adjacent swelling. R TM normal with trace dried blood on floor of ext aud canal c/w scab. NECK: Trachea midline. No JVD. CARDIOVASCULAR: Regular rate and rhythm. RESPIRATORY: No accessory muscle use. Clear to auscultation. Breath sounds equal bilaterally. Data Data Last Documented VS Vital Signs Date Time Temp Pulse Resp B/P (MAP) Pulse Ox O2 Delivery O2 Flow Rate FiO2 08/21/17 10:28 98.1 81 16 144/78 (100) 96 VS reviewed Orders Orders Bupivacaine-Epi Pf 0.5% Inj (Sensorcaine (08/21/17 10:45) Bupivacaine-Epi Pf 0.5% Inj (Sensorcaine (08/21/17 10:45) Bupivacaine Pf 0.5% Inj (Marcaine Pf 0.5 (08/21/17 10:45) Bupivacaine Pf 0.5% Inj (Marcaine Pf 0.5 (08/21/17 10:45) Ed Discharge Order (08/21/17 10:52) Ibuprofen (Motrin) (08/21/17 11:00) Penicillin V Potassium (Veetids) (08/21/17 11:00) MDM Medical Decision Making Medical Screen Exam Complete: Yes Emergency Medical Condition: Yes Medical Record Reviewed: Yes Differential Diagnosis abscess, anug, carry Narrative Course Barroso II dental fracture with abscess Pen VK script Dental block done here with good effect Follow up with dentist Procedures Procedure Narrative Bupivacaine nerve block, 5 cc into region of coronoid notch, pt tolerated well with near immediate pain relief Diagnosis Primary Impression: Dental cavity Additional Impression: Periapical abscess Referrals: Dentist call for appointment Med/Other Pt SpecificInfo: Prescription(s) given Scripts Fluconazole (Diflucan) 150 Mg Tab 150 MG PO ONCE for Infection, #1 TAB 0 Refills Prov: Yobani Sol MD 08/21/17 Ibuprofen (Ibuprofen) 600 Mg Tab 600 MG PO Q8H Y for PAIN for 5 Days, #15 TAB 0 Refills Prov: Yobani Sol MD 08/21/17 Penicillin V Potassium (Penicillin V Potassium) 500 Mg Tab 500 MG PO Q8H for Infection for 10 Days, #30 TAB 0 Refills Prov: Yobani Sol MD 08/21/17 Disposition: 01 DISCHARGE HOME Condition: Stable Yobani Sol MD Aug 21, 2017 10:52
[2017-08-21] MEDS ORDERED: IBUPROFEN 600 MG TAB PO ONE (11:00)
[2017-08-21] MEDS ORDERED: PENICILLIN V POTASSIUM 500 MG TAB PO ONE (11:00)
[2017-08-21] MEDS ORDERED: DIFL150T PO (11:04)
== END 2017-08-21 11:15 | disposition home or self-care (01) ==
LOC: PHEFT 10:23
DX: K02.9 Dental caries, unspecified (principal); K04.7 Periapical abscess without sinus; E78.00 Pure hypercholesterolemia, unspecified
CPT/HCPCS: 64400

== ENCOUNTER 2017-09-18 11:30 | Emergency (ER) | payer MEDICARE, MEDICAID ==
[~2017-09-18] VITALS: Ht 175.3 cm; Wt 82.5 kg
[~2017-09-18 11:30] MED LIST changes: -BUTA1CAP PO; +DIFL150T PO; +IBUP-232 PO; +PENI500T PO
[2017-09-18 11:34] VITALS: BP 130/63; PULSE 85; RESP 16; TEMP 98.2; O2SAT 99
--- NOTE | 2017-09-18 11:46 | PD ---
HPI Chief Complaint: Oral / Dental Pain or Problem Time Seen by Provider: 11:46 Travel History International Travel<30 days: No Contact w/Intl Traveler<30days: No Traveled to known affect area: No History of Present Illness HPI 57-year-old female presents to emergency with ongoing dental pain and swelling of the right lower first premolar which is broken off at the gumline. Patient currently is on amoxicillin 500 mg 3 times a day 5 days without improvement. Patient denies difficulty swallowing, fever, or drainage. She is allergic to codeine, tape, and sulfa. Pain is currently 6 out of 10. Patient is been controlling her pain with ibuprofen 800 mg 3 times daily. PFSH Past Medical History Hx Anticoagulant Therapy: No Arthritis: No Asthma: No Autoimmune Disease: No Anxiety: Yes Depression: Yes Heart Rhythm Problems: No Cancer: Yes (breast 4 years ago) Cardiovascular Problems: No High Cholesterol: Yes Chemotherapy: No Chest Pain: Yes Congestive Heart Failure: No COPD: No Cerebrovascular Accident: No Diabetes: No Diminished Hearing: No Endocrine: No Gastrointestinal Disorders: No GERD: Yes Genitourinary: Yes Headaches: Yes (MIGRAINES) Hiatal Hernia: No Heparin Induced Thrombocytopen: No Hypertension: No Immune Disorder: No Implanted Vascular Access Dvce: No Kidney Stones: No Musculoskeletal: Yes (HX OF TORN ROTATOR CUFF) Neurologic: No Psychiatric: Yes (panic disorder, anorexia as teen) Reproductive: No Respiratory: No Immunizations Current: Yes Migraines: Yes Radiation Therapy: Yes Renal Failure: No Seizures: Yes Sickle Cell Disease: No Sleep Apnea: Yes Thyroid Disease: No Ulcer: Yes ?: Not Menopausal: Yes : 0 Past Surgical History Abdominal Surgery: No AICD: No Arteriovenous Shunt: No Cardiac Surgery: No Ear Surgery: No Endocrine Surgery: No Eye Surgery: No Genitourinary Surgery: No Gynecologic Surgery: No Hysterectomy: No Insulin Pump: Yes Joint Replacement: No Neurologic Surgery: No Oral Surgery: No Pacemaker: No Thoracic Surgery: No Other Surgery: Yes ( BILATERAL LUMPECTOMY CA LT BREAST) Social History Alcohol Use: No Tobacco Use: Yes (1/2 ppd) Substance Use: No Allergies-Medications (Allergen,Severity, Reaction): Coded Allergies: Sulfa (Sulfonamide Antibiotics) (Unverified Allergy, Mild, SKIN RASH, 09/18) . codeine (Unverified Allergy, Mild, Rash, 09/18/17) . Uncoded Allergies: TAPE (Allergy, Mild, BLISTERS, 09/18/17) ... Reported Meds & Prescriptions Reported Meds & Active Scripts Active Penicillin V Potassium 500 Mg Tab 500 Mg PO Q8H 10 Days Reported Tamoxifen (Tamoxifen Citrate) 20 Mg Tab 20 Mg PO DAILY Effexor (Venlafaxine HCl) 75 Mg Tab 75 Mg PO HS Depakote ER (Divalproex Sodium) 500 Mg Antoni 500 Mg PO HS Clonazepam 1 Mg Tab 0.25 Mg PO BID Review of Systems Except as stated in HPI: all other systems reviewed are Neg General / Constitutional: No: Fever Eyes: No: Visual changes HENT: Positive: Dental Difficulties, No: Headaches, Gingival Bleeding Cardiovascular: No: Chest Pain or Discomfort Respiratory: No: Shortness of Breath Gastrointestinal: No: Abdominal Pain Genitourinary: No: Dysuria Musculoskeletal: No: Pain Skin: No Rash Neurologic: No: Weakness Psychiatric: No: Depression Endocrine: No: Polydipsia Hematologic/Lymphatic: No: Easy Bruising Physical Exam Narrative GENERAL: Patient appears in no acute distress. SKIN: Warm and dry. HEAD: Atraumatic. Normocephalic. EYES: Pupils equal and round. No scleral icterus. No injection or drainage. ENT: No nasal bleeding or discharge. Mucous membranes pink and moist. Patient is broken first premolar on the right lower jaw. She has localized swelling of the gingiva. No signs of Mina's angina. Pharynx is clear. Airway is patent. NECK: Trachea midline. Supple nontender without lymphadenopathy. CARDIOVASCULAR: Regular rate and rhythm. RESPIRATORY: No accessory muscle use. Clear to auscultation. Breath sounds equal bilaterally. GASTROINTESTINAL: Abdomen soft, non-tender, nondistended. Hepatic and splenic margins not palpable. MUSCULOSKELETAL: Extremities without clubbing, cyanosis, or edema. No obvious deformities. NEUROLOGICAL: Awake and alert. No obvious cranial nerve deficits. Motor grossly within normal limits. Five out of 5 muscle strength in the arms and legs. Normal speech. PSYCHIATRIC: Appropriate mood and affect; insight and judgment normal. Data Data Last Documented VS Vital Signs Date Time Temp Pulse Resp B/P (MAP) Pulse Ox O2 Delivery O2 Flow Rate FiO2 09/18/17 11:34 98.2 85 16 130/63 (85) 99 MDM Medical Decision Making Medical Screen Exam Complete: Yes Emergency Medical Condition: Yes Medical Record Reviewed: Yes Differential Diagnosis Dental pain. Dental caries. Dental abscess. Narrative Course Patient is to stop the amoxicillin and start clindamycin 300 mg 3 times a day 10 days. Patient is to use hot compresses frequently to the area. Patient to continue ibuprofen and Tylenol and follow-up with dental resources as soon as possible. Referrals: Dentist Patient Instructions: Dental Abscess (ED), General Instructions Additional Instructions: Patient is to stop the amoxicillin and start clindamycin 300 mg 3 times a day 10 days. Patient is to use hot compresses frequently to the area. Patient to continue ibuprofen and Tylenol and follow-up with dental resources as soon as possible. Med/Other Pt SpecificInfo: Prescription(s) given Disposition: 01 DISCHARGE HOME Condition: Stable Adrien Blanca Sep 18, 2017 11:46
[2017-09-18] MEDS ORDERED: CLIN150 PO (11:55)
== END 2017-09-18 12:22 | disposition home or self-care (01) ==
LOC: PHEFT 11:30
DX: K04.7 Periapical abscess without sinus (principal); F17.200 Nicotine dependence, unspecified, uncomplicated
CPT/HCPCS: 99284

== ENCOUNTER 2017-11-21 00:01 | Emergency (ER) | payer MEDICARE, OTHER ==
[~2017-11-21] VITALS: Ht 175.3 cm; Wt 80.0 kg
[~2017-11-21 00:01] MED LIST changes: +CLIN150 PO; -DIFL150T PO; -IBUP-232 PO
[2017-11-21 00:04] VITALS: BP 143/68; PULSE 68; RESP 18; TEMP 98.1; O2SAT 97
--- NOTE | 2017-11-21 01:25 | PD ---
HPI Chief Complaint: Pain: Acute or Chronic Time Seen by Provider: 01:12 Travel History International Travel<30 days: No Contact w/Intl Traveler<30days: No Traveled to known affect area: No History of Present Illness HPI The patient is a 57-year-old female that complains of left inner thigh pain for 30 minutes. This pain apparently started at 11:30. She has never had deep vein thrombosis before. She denies any swelling or erythema over the area. She states it hurts when she stands up or walks. Her pain intensity is a 2/10. She denies any chest pain, shortness of breath, hemoptysis, fever, tachycardia or syncopal or near syncopal spells. PFSH Past Medical History Hx Anticoagulant Therapy: No Arthritis: No Asthma: No Autoimmune Disease: No Anxiety: Yes Depression: Yes Heart Rhythm Problems: No Cancer: Yes (breast 4 years ago) Cardiovascular Problems: No High Cholesterol: Yes Chemotherapy: No Chest Pain: Yes Congestive Heart Failure: No COPD: No Cerebrovascular Accident: No Diabetes: No Diminished Hearing: No Endocrine: No Gastrointestinal Disorders: No GERD: Yes Genitourinary: Yes Headaches: Yes (MIGRAINES) Hiatal Hernia: No Heparin Induced Thrombocytopen: No Hypertension: No Immune Disorder: No Implanted Vascular Access Dvce: No Kidney Stones: No Musculoskeletal: Yes (HX OF TORN ROTATOR CUFF) Neurologic: No Psychiatric: Yes (panic disorder, anorexia as teen) Reproductive: No Respiratory: No Immunizations Current: Yes Migraines: Yes Radiation Therapy: Yes Renal Failure: No Seizures: Yes Sickle Cell Disease: No Sleep Apnea: Yes Thyroid Disease: No Ulcer: Yes Influenza Vaccination: No ?: Not LMP: 3 years ago Menopausal: Yes : 0 Past Surgical History Abdominal Surgery: No AICD: No Arteriovenous Shunt: No Cardiac Surgery: No Ear Surgery: No Endocrine Surgery: No Eye Surgery: No Genitourinary Surgery: No Gynecologic Surgery: No Hysterectomy: No Insulin Pump: Yes Joint Replacement: No Neurologic Surgery: No Oral Surgery: No Pacemaker: No Thoracic Surgery: No Other Surgery: Yes ( BILATERAL LUMPECTOMY CA LT BREAST) Social History Alcohol Use: Yes (rarely) Tobacco Use: Yes (1/2 ppd) Substance Use: No Allergies-Medications (Allergen,Severity, Reaction): Coded Allergies: Sulfa (Sulfonamide Antibiotics) (Verified Allergy, Mild, SKIN RASH, 11/21/17 ) . codeine (Verified Allergy, Mild, Rash, 11/21/17) . Uncoded Allergies: TAPE (Allergy, Mild, BLISTERS, 09/18/17) ... Reported Meds & Prescriptions Reported Meds & Active Scripts Active Cleocin (Clindamycin HCl) 150 Mg Cap 300 Mg PO Q8HR 10 Days Penicillin V Potassium 500 Mg Tab 500 Mg PO Q8H 10 Days Reported Tamoxifen (Tamoxifen Citrate) 20 Mg Tab 20 Mg PO DAILY Effexor (Venlafaxine HCl) 75 Mg Tab 75 Mg PO HS Depakote ER (Divalproex Sodium) 500 Mg Antoni 500 Mg PO HS Clonazepam 1 Mg Tab 0.25 Mg PO BID Review of Systems Except as stated in HPI: all other systems reviewed are Neg Physical Exam Narrative GENERAL: Well-nourished, well-developed patient in minimal apparent distress with her left thigh discomfort. Her vital signs are normal. SKIN: Focused skin assessment warm/dry. HEAD: Normocephalic. EYES: No scleral icterus. No injection or drainage. NECK: Supple, trachea midline. No JVD or lymphadenopathy. CARDIOVASCULAR: Regular rate and rhythm without murmurs, gallops, or rubs. RESPIRATORY: Breath sounds equal bilaterally. No accessory muscle use. GASTROINTESTINAL: Abdomen soft, non-tender, nondistended. MUSCULOSKELETAL: No cyanosis, or edema. There is no cord palpated in the thigh or the calf and the tenderness appears to be around the area of the sartorius muscle on the left. There is no erythema of the area. She does have superficial varicosities present. BACK: Nontender without obvious deformity. No CVA tenderness. Data Data Last Documented VS Vital Signs Date Time Temp Pulse Resp B/P (MAP) Pulse Ox O2 Delivery O2 Flow Rate FiO2 11/21/17 01:58 53 18 98/60 (73) 97 Room Air 11/21/17 00:04 98.1 Orders Orders Us Leg Venous Doppler (11/21/17 01:21) [facility] Medical Decision Making Medical Screen Exam Complete: Yes Emergency Medical Condition: Yes Medical Record Reviewed: Yes Interpretation(s) The ultrasound is negative for DVT. Differential Diagnosis Muscle strain, DVT, myofascial inflammation Narrative Course The patient likely has a muscle strain. There is no evidence for DVT. Plan: The patient be put on Motrin 600 mg 3 times daily. Diagnosis Primary Impression: Myofascial pain Additional Impression: Muscle strain of left thigh Additional Instructions: Take the Motrin regularly, 1 tablet 3 times daily. He will get that maximum anti-inflammatory effect this way. Follow-up with your primary care physician next week. Med/Other Pt SpecificInfo: Prescription(s) given Scripts Ibuprofen (Ibuprofen) 600 Mg Tab 600 MG PO TID, #30 TAB 0 Refills Prov: Timtoeo Mayfield MD 11/21/17 Disposition: 01 DISCHARGE HOME Condition: Stable Timoteo Mayfield MD Nov 21, 2017 01:25
[2017-11-21 01:34] VITALS: BP 151/67; PULSE 89; RESP 18
[2017-11-21 01:58] VITALS: BP 98/60; PULSE 53; RESP 18; O2SAT 97
--- NOTE | 2017-11-21 02:36 | RADRPT ---
EXAM DATE/TIME: 11/21/2017 02:10 [facility] COMPARISON: No previous studies available for comparison. INDICATIONS : Left leg pain. MEDICAL HISTORY : Hypercholesterolemia. Inflammatory bowel disease. Carcinoma, breast. Seizures. Syncope. Migraines. Chest pain. Sleep apnea. Ulcer. GERD. Fibromyalgia. UTI. PTSD. Panic disorder. Anorexia as teen. Anx iety. SURGICAL HISTORY : Breast biopsy. Lumpectomy. Bilateral rotator cuff. Radiation therapy. ENCOUNTER: Initial ACUITY: 1 day PAIN SCORE: 3/10 LOCATION: Left leg. TECHNIQUE: Venous ultrasound of the leg was performed from the inguinal ligament to the proximal calf. Real-sana e, color Doppler and spectral tracing, compression and augmentation techniques were used. FINDINGS: There is normal compressibility of the deep venous system from the inguinal region to the proximal ca lf. No echogenic clot is seen in the lumen of the common femoral, femoral, popliteal, and posterior tibial veins. There is a normal response of the venous system to proximal and distal augmentation an d respiration. CONCLUSION: Normal examination. Moise Mata MD on November 21, 2017 at 2:34 Board Certified Radiologist. This report was verified electronically.
[2017-11-21] MEDS ORDERED: IBUP-232 PO (02:55)
== END 2017-11-21 03:12 | disposition home or self-care (01) ==
LOC: PHED 00:01
DX: S76.912A Strain of unspecified muscles, fascia and tendons at thigh level, left thigh, initial encounter (principal); E78.00 Pure hypercholesterolemia, unspecified; F41.0 Panic disorder [episodic paroxysmal anxiety]; F32.9 Major depressive disorder, single episode, unspecified; K21.9 Gastro-esophageal reflux disease without esophagitis; F17.210 Nicotine dependence, cigarettes, uncomplicated; Z85.3 Personal history of malignant neoplasm of breast; Z88.2 Allergy status to sulfonamides; Z88.5 Allergy status to narcotic agent
CPT/HCPCS: 93971; 99284

== ENCOUNTER 2017-12-01 19:32 | Emergency (ER) | payer MEDICARE, OTHER ==
[~2017-12-01] VITALS: Ht 175.3 cm; Wt 82.4 kg
[~2017-12-01 19:32] MED LIST changes: +IBUP-232 PO
[2017-12-01 19:50] VITALS: BP 127/59; PULSE 81; RESP 12; TEMP 98.4; O2SAT 96
--- NOTE | 2017-12-01 20:25 | PD ---
HPI Chief Complaint: Oral / Dental Pain or Problem Time Seen by Provider: 20:12 Travel History International Travel<30 days: No Contact w/Intl Traveler<30days: No Traveled to known affect area: No History of Present Illness HPI Patient comes to the emergency department complaining of right lower dental pain and swelling that began approximately 6 hours ago. Patient reports has had similar happen in the past, but has not been able to follow-up with a dentist secondary to not having insurance or income to do so. Patient reports she normally just gets antibiotics and symptoms improve. Patient reports pain is throbbing-like in nature and radiates to her ear. Pain is worse with eating or drinking anything. Patient reports taking Tylenol and seemed to help some. Denies any fevers, nausea, vomiting, difficulty swallowing, or neck pain. PFSH Past Medical History Hx Anticoagulant Therapy: No Arthritis: No Asthma: No Autoimmune Disease: No Anxiety: Yes Depression: Yes Heart Rhythm Problems: No Cancer: Yes (breast 4 years ago) Cardiovascular Problems: No High Cholesterol: Yes Chemotherapy: No Chest Pain: Yes Congestive Heart Failure: No COPD: No Cerebrovascular Accident: No Diabetes: No Diminished Hearing: No Endocrine: No Gastrointestinal Disorders: No GERD: Yes Genitourinary: Yes Headaches: Yes (MIGRAINES) Hiatal Hernia: No Heparin Induced Thrombocytopen: No Hypertension: No Immune Disorder: No Implanted Vascular Access Dvce: No Kidney Stones: No Musculoskeletal: Yes (HX OF TORN ROTATOR CUFF) Neurologic: No Psychiatric: Yes (panic disorder, anorexia as teen) Reproductive: No Respiratory: No Immunizations Current: Yes Migraines: Yes Radiation Therapy: Yes Renal Failure: No Seizures: Yes Sickle Cell Disease: No Sleep Apnea: Yes Thyroid Disease: No Ulcer: Yes Influenza Vaccination: No ?: Not Menopausal: Yes : 0 Past Surgical History Abdominal Surgery: No AICD: No Arteriovenous Shunt: No Cardiac Surgery: No Ear Surgery: No Endocrine Surgery: No Eye Surgery: No Genitourinary Surgery: No Gynecologic Surgery: No Hysterectomy: No Insulin Pump: Yes Joint Replacement: No Neurologic Surgery: No Oral Surgery: No Pacemaker: No Thoracic Surgery: No Other Surgery: Yes ( BILATERAL LUMPECTOMY CA LT BREAST) Social History Alcohol Use: Yes (rarely) Tobacco Use: Yes (1/2 ppd) Substance Use: No Allergies-Medications (Allergen,Severity, Reaction): Coded Allergies: Sulfa (Sulfonamide Antibiotics) (Verified Allergy, Mild, SKIN RASH, 11/21/17 ) . codeine (Verified Allergy, Mild, Rash, 11/21/17) . Uncoded Allergies: TAPE (Allergy, Mild, BLISTERS, 09/18/17) ... Reported Meds & Prescriptions Reported Meds & Active Scripts Active Naprosyn (Naproxen) 500 Mg Tab 500 Mg PO Q12HR PRN Clindamycin (Clindamycin HCl) 150 Mg Cap 2 Cap PO Q6H 10 Days Ibuprofen 600 Mg Tab 600 Mg PO TID Cleocin (Clindamycin HCl) 150 Mg Cap 300 Mg PO Q8HR 10 Days Penicillin V Potassium 500 Mg Tab 500 Mg PO Q8H 10 Days Reported Tamoxifen (Tamoxifen Citrate) 20 Mg Tab 20 Mg PO DAILY Effexor (Venlafaxine HCl) 75 Mg Tab 75 Mg PO HS Depakote ER (Divalproex Sodium) 500 Mg Antoni 500 Mg PO HS Clonazepam 1 Mg Tab 0.25 Mg PO BID Review of Systems Except as stated in HPI: all other systems reviewed are Neg Physical Exam Narrative GENERAL: Well-developed, overly nourished, in no acute distress, and non-ill appearing. SKIN: Focused skin assessment warm and dry. HEAD: Atraumatic. Normocephalic. EYES: Pupils equal and round. EOMI. No scleral icterus. No injection or drainage. ENT: No nasal bleeding or discharge. Mucous membranes pink and moist. Poor dentition with no visible or palpable abscess. There is some soft tissue swelling noted over the right lower mandible. Floor the mouth, submandibular, and submental are all soft to palpation. Patient swallowing saliva without difficulty. NECK: Trachea midline. No cervical lymphadenopathy. Supple. No nuclear rigidity. RESPIRATORY: No accessory muscle use. No respiratory distress. MUSCULOSKELETAL: No obvious deformities. No clubbing. No cyanosis. No edema. Full range of motion. NEUROLOGICAL: Awake and alert. No obvious cranial nerve deficits. Motor grossly within normal limits. Normal speech. PSYCHIATRIC: Appropriate mood and affect; insight and judgment normal. Data Data Last Documented VS Vital Signs Date Time Temp Pulse Resp B/P (MAP) Pulse Ox O2 Delivery O2 Flow Rate FiO2 12/01/17 20:31 12/01/17 19:50 98.4 81 12 96 Orders Orders Dexamethasone Inj (Decadron Inj) (12/01/17 20:30) Clindamycin (Cleocin) (12/01/17 20:30) Ed Discharge Order (12/01/17 20:29) [facility] Medical Decision Making Medical Screen Exam Complete: Yes Emergency Medical Condition: Yes Differential Diagnosis Dental abscess, dental infection, dental caries, dentalgia Narrative Course The patient presented with dental pain. There is no fever. There is no significant facial swelling or evidence of cellulitis. There is poor dentition but no evidence of drainable abscess at this time. There is no evidence of significant deep or invading abscess at this time. The patient will be placed on antibiotics and pain medication. The patient was instructed to follow up with a dentist. The patient was given the dental referral sheet. Warnings were discussed with the patient regarding worsening of infection. The patient is to return if pain worsens, develops progressive swelling or facial redness or fever. The patient agrees with plan. Patient in no obvious distress upon re-evaluation. Patient was asked if they wanted to speak to my attending, which the patient did not wish to do at this time. Any questions/concerns in reference to patient diagnosis/condition discussed and clarified prior to patient's discharge. Reinforced sheer importance of close follow up with patient's primary physician or primary care clinic and/or dentist. Instructed patient to return to ED immediately, if symptoms return/worsen. Patient showed understanding of above instructions. Further instructions and recommendations were detailed in discharge paperwork. Patient ambulated without difficulty out of ED at discharge. Diagnosis Primary Impression: Dental infection Referrals: [facility] Patient Instructions: Dental Abscess (ED), Dental Caries (ED), General Instructions Additional Instructions: Follow-up with your primary care physician and dentist as soon as possible. Rinse mouth with warm salt water gargles. Take all medication as prescribed. Return to the emergency department if symptoms get worse. Med/Other Pt SpecificInfo: Prescription(s) given Scripts Naproxen (Naprosyn) 500 Mg Tab 500 MG PO Q12HR Y for PAIN SCALE 1 TO 10, #14 TAB 0 Refills Prov: Kasandra Rodrigues MD 12/01/17 Clindamycin (Clindamycin) 150 Mg Cap 2 CAP PO Q6H for Infection for 10 Days, #80 CAP 0 Refills Prov: Kasandra Rodrigues MD 12/01/17 Disposition: 01 DISCHARGE HOME Condition: Stable Francisco Mann Dec 01, 2017 20:25
[2017-12-01] MEDS ORDERED: CLIN150C14 PO (20:27)
[2017-12-01] MEDS ORDERED: NAPR500 PO (20:27)
[2017-12-01] MEDS ORDERED: CLINDAMYCIN 150 MG CAP PO ONE (20:30)
[2017-12-01] MEDS ORDERED: DEXAMETHASONE SOD PHOS 20 MG/5 ML VIAL IM ONE (20:30)
== END 2017-12-01 20:50 | disposition home or self-care (01) ==
LOC: PHEFT 19:32
DX: K04.7 Periapical abscess without sinus (principal); E78.00 Pure hypercholesterolemia, unspecified; K21.9 Gastro-esophageal reflux disease without esophagitis; F32.9 Major depressive disorder, single episode, unspecified; F41.0 Panic disorder [episodic paroxysmal anxiety]; G47.30 Sleep apnea, unspecified; F17.200 Nicotine dependence, unspecified, uncomplicated; Z85.3 Personal history of malignant neoplasm of breast
CPT/HCPCS: 99283; J1100

== ENCOUNTER 2018-01-31 19:54 | Emergency (ER) | payer MEDICARE, OTHER ==
[~2018-01-31] VITALS: Ht 175.3 cm; Wt 85.0 kg
[~2018-01-31 19:54] MED LIST changes: +CLIN150C14 PO; +NAPR500 PO
[2018-01-31 20:12] VITALS: BP 134/71; PULSE 75; RESP 20; TEMP 98.2
[2018-01-31] MEDS ORDERED: AZITHROMYCIN 250 MG TAB PO ONE (22:00)
[2018-01-31] MEDS ORDERED: ZITHTAB PO (22:00)
--- NOTE | 2018-01-31 22:02 | PD ---
HPI Chief Complaint: ENT Complaint Time Seen by Provider: 20:47 Travel History International Travel<30 days: No Contact w/Intl Traveler<30days: No Traveled to known affect area: No History of Present Illness HPI 57-year-old female presents to the emergency department with subjective chills fever myalgias arthralgias sore throat laryngitis cough and not feeling well. Patient states history of anxiety but takes no other chronic medications are chronic issues. Patient has taken [id number] antipyretic with some relief. Patient states due to persistence of symptoms however presents now for further evaluation. No report of shortness of breath or wheezing. No report of abdominal pain flank pain dysuria frequency urgency. No report of diarrheal illness. PFSH Past Medical History Narrative Medical Alcohol use, tobacco use, rotator cuff injury, breast cancer with lumpectomy, depression, anxiety panic disorder, migraine, radiation therapy, seizure disorder, sleep apnea, peptic ulcer disease; nursing notes reviewed Hx Anticoagulant Therapy: No Arthritis: No Asthma: No Autoimmune Disease: No Anxiety: Yes Depression: Yes Heart Rhythm Problems: No Cancer: Yes (breast 4 years ago) Cardiovascular Problems: No High Cholesterol: Yes Chemotherapy: No Chest Pain: Yes Congestive Heart Failure: No COPD: No Cerebrovascular Accident: No Diabetes: No Diminished Hearing: No Endocrine: No Gastrointestinal Disorders: No GERD: Yes Genitourinary: Yes Headaches: Yes (MIGRAINES) Hiatal Hernia: No Heparin Induced Thrombocytopen: No Hypertension: No Immune Disorder: No Implanted Vascular Access Dvce: No Kidney Stones: No Musculoskeletal: Yes (HX OF TORN ROTATOR CUFF) Neurologic: No Psychiatric: Yes (panic disorder, anorexia as teen) Reproductive: No Respiratory: No Immunizations Current: Yes Migraines: Yes Radiation Therapy: Yes Renal Failure: No Seizures: Yes Sickle Cell Disease: No Sleep Apnea: Yes Thyroid Disease: No Ulcer: Yes Tetanus Vaccination: < 5 Years Influenza Vaccination: No ?: Not LMP: 2013 Menopausal: Yes : 0 Past Surgical History Abdominal Surgery: No AICD: No Arteriovenous Shunt: No Cardiac Surgery: No Ear Surgery: No Endocrine Surgery: No Eye Surgery: No Genitourinary Surgery: No Gynecologic Surgery: No Hysterectomy: No Insulin Pump: Yes Joint Replacement: No Neurologic Surgery: No Oral Surgery: No Pacemaker: No Thoracic Surgery: No Other Surgery: Yes ( BILATERAL LUMPECTOMY CA LT BREAST) Social History Alcohol Use: Yes (rarely) Tobacco Use: Yes (1/2 ppd) Substance Use: No Allergies-Medications (Allergen,Severity, Reaction): Coded Allergies: Sulfa (Sulfonamide Antibiotics) (Verified Allergy, Mild, SKIN RASH, ) . codeine (Verified Allergy, Mild, Rash, 01/31/18) . Uncoded Allergies: TAPE (Allergy, Mild, BLISTERS, 09/18/17) ... Reported Meds & Prescriptions Reported Meds & Active Scripts Active Reported Effexor (Venlafaxine HCl) 75 Mg Tab 75 Mg PO HS Depakote ER (Divalproex Sodium) 500 Mg Antoni 500 Mg PO HS Clonazepam 1 Mg Tab 0.25 Mg PO BID Review of Systems Except as stated in HPI: all other systems reviewed are Neg Physical Exam Narrative GENERAL: Well-developed well-nourished female no acute distress or respiratory distress SKIN: Warm and dry. HEAD: Normocephalic. EYES: No scleral icterus. No injection or drainage. ENT: Mucous membranes moist airways patent tympanic membranes no redness dullness or loss of landmarks. Sinuses tender to percussion over the maxillary sinuses NECK: Supple, trachea midline. No JVD or lymphadenopathy. CARDIOVASCULAR: Regular rate and rhythm without murmurs, gallops, or rubs. RESPIRATORY: Breath sounds equal bilaterally. No accessory muscle use. GASTROINTESTINAL: Abdomen soft, non-tender, nondistended. MUSCULOSKELETAL: No cyanosis, or edema. BACK: Nontender without obvious deformity. No CVA tenderness. Data Data Last Documented VS Vital Signs Date Time Temp Pulse Resp B/P (MAP) Pulse Ox O2 Delivery O2 Flow Rate FiO2 01/31/18 20:12 98.2 75 20 134/71 (92) Orders Orders Influenzae A/B Antigen (01/31/18 20:47) Group A Rapid Strep Screen (01/31/18 20:47) Strep Culture (Group A) (01/31/18 20:50) Ed Discharge Order (01/31/18 21:54) Azithromycin (Zithromax) (01/31/18 22:00) MDM Medical Decision Making Medical Screen Exam Complete: Yes Emergency Medical Condition: Yes Medical Record Reviewed: Yes Interpretation(s) Rapid strep antigen: Negative Influenza antigen: Negative Differential Diagnosis Viral syndrome, pharyngitis, tonsillitis, influenza, sinusitis, bronchitis, pneumonia Narrative Course Specimens collected and sent for resulting Influenza antigen and rapid strep antigen negative Patient given first dose of azithromycin Patient is stable for outpatient management and follow-up with her primary care provider Diagnosis Primary Impression: Sinusitis, acute Referrals: Primary Care Physician 2 days Patient Instructions: General Instructions Additional Instructions: Increase fluid hydration Follow-up with primary care provider Take acetaminophen/Tylenol every 4 hours as needed for fever 100.4F or greater for minor pain Take ibuprofen 600 mg as often as every 6 hours as needed for fever 100.4F or greater or for pain associated with inflammation Return to the emergency department for any concerns or change in condition Med/Other Pt SpecificInfo: Prescription(s) given Scripts Azithromycin (Zithromax Z-Tim) 250 Mg Dspk 250 MG PO DIRECTED for Infection, #1 DSPK 0 Refills 500 MG (2 tabs) day 1, then 1 tab days 2-5. Prov: Ninfa Thayer MD 01/31/18 Disposition: 01 DISCHARGE HOME Condition: Stable Ninfa Thayer MD Jan 31, 2018 22:02
== END 2018-01-31 22:07 | disposition home or self-care (01) ==
LOC: PHEFT 19:54
DX: J01.90 Acute sinusitis, unspecified (principal); E78.00 Pure hypercholesterolemia, unspecified; F32.9 Major depressive disorder, single episode, unspecified; F41.0 Panic disorder [episodic paroxysmal anxiety]; K21.9 Gastro-esophageal reflux disease without esophagitis; G47.30 Sleep apnea, unspecified; F17.200 Nicotine dependence, unspecified, uncomplicated; Z85.3 Personal history of malignant neoplasm of breast
CPT/HCPCS: 87081; 87804; 87880; 99283

== ENCOUNTER 2018-02-15 09:48 | Emergency (ER) | payer MEDICARE, OTHER ==
[~2018-02-15 09:48] MED LIST changes: -CLIN150 PO; -CLIN150C14 PO; -IBUP-232 PO; -NAPR500 PO; -PENI500T PO; -TAMO20TA6 PO; +ZITHTAB PO
[2018-02-15 09:50] VITALS: BP 126/72; PULSE 73; RESP 16; TEMP 97.3; O2SAT 97
--- NOTE | 2018-02-15 10:03 | PD ---
HPI Chief Complaint: ENT Complaint Time Seen by Provider: 09:55 Travel History International Travel<30 days: No Contact w/Intl Traveler<30days: No Traveled to known affect area: No History of Present Illness HPI 57-year-old female presents to the emergency department for evaluation of right ear pain for 2 days. No fevers or chills. She states it hurts worse when she swallows. She also states that she thinks she has a rash to her outer ear and a lump below her ear. Current pain is 6/10. Mild severity. PFSH Past Medical History Hx Anticoagulant Therapy: No Arthritis: No Asthma: No Autoimmune Disease: No Anxiety: Yes Depression: Yes Heart Rhythm Problems: No Cancer: Yes (breast 4 years ago) Cardiovascular Problems: No High Cholesterol: Yes Chemotherapy: No Chest Pain: Yes Congestive Heart Failure: No COPD: No Cerebrovascular Accident: No Diabetes: No Diminished Hearing: No Endocrine: No Gastrointestinal Disorders: No GERD: Yes Genitourinary: Yes Headaches: Yes (MIGRAINES) Hiatal Hernia: No Heparin Induced Thrombocytopen: No Hypertension: No Immune Disorder: No Implanted Vascular Access Dvce: No Kidney Stones: No Musculoskeletal: Yes (HX OF TORN ROTATOR CUFF) Neurologic: No Psychiatric: Yes (panic disorder, anorexia as teen) Reproductive: No Respiratory: No Immunizations Current: Yes Migraines: Yes Radiation Therapy: Yes Renal Failure: No Seizures: Yes Sickle Cell Disease: No Sleep Apnea: Yes Thyroid Disease: No Ulcer: Yes ?: Not LMP: ANNABELLE Menopausal: Yes : 0 Past Surgical History Abdominal Surgery: No AICD: No Arteriovenous Shunt: No Cardiac Surgery: No Ear Surgery: No Endocrine Surgery: No Eye Surgery: No Genitourinary Surgery: No Gynecologic Surgery: No Hysterectomy: No Insulin Pump: Yes Joint Replacement: No Neurologic Surgery: No Oral Surgery: No Pacemaker: No Thoracic Surgery: No Other Surgery: Yes ( BILATERAL LUMPECTOMY CA LT BREAST) Social History Alcohol Use: Yes (rarely) Tobacco Use: Yes (1/2 ppd) Substance Use: No Allergies-Medications (Allergen,Severity, Reaction): Coded Allergies: Sulfa (Sulfonamide Antibiotics) (Verified Allergy, Mild, SKIN RASH, 02/15/18 ) . codeine (Verified Allergy, Mild, Rash, 02/15/18) . Uncoded Allergies: TAPE (Allergy, Mild, BLISTERS, 09/18/17) ... Reported Meds & Prescriptions Reported Meds & Active Scripts Active Reported Effexor (Venlafaxine HCl) 75 Mg Tab 75 Mg PO HS Depakote ER (Divalproex Sodium) 500 Mg Antoni 500 Mg PO HS Clonazepam 1 Mg Tab 0.25 Mg PO BID Review of Systems Except as stated in HPI: all other systems reviewed are Neg Physical Exam Narrative GENERAL: Well-nourished, well-developed female patient, afebrile. SKIN: Focused skin assessment warm/dry. HEAD: Normocephalic. Atraumatic. ENT: Mucosa pink and moist. No erythema or exudates. No uvular edema. No uvular , palatal, or tonsillar deviation. Airway patent. Nasal turbinates appear normal without nasal blood, purulent drainage or septal hematoma. Bilateral tympanic membranes clear without erythema or perforation. No mastoid tenderness to palpation. EYES: No scleral icterus. No injection or drainage. NECK: Supple, trachea midline. No JVD or lymphadenopathy. CARDIOVASCULAR: Regular rate and rhythm without murmurs, gallops, or rubs. RESPIRATORY: Breath sounds equal bilaterally. No accessory muscle use. Lung sounds are clear to auscultation. GASTROINTESTINAL: Abdomen soft, non-tender, nondistended. MUSCULOSKELETAL: No cyanosis, or edema. BACK: Nontender without obvious deformity. No CVA tenderness. Data Data Last Documented VS Vital Signs Date Time Temp Pulse Resp B/P (MAP) Pulse Ox O2 Delivery O2 Flow Rate FiO2 02/15/18 09:50 97.3 73 16 126/72 (90) 97 MDM Medical Decision Making Medical Screen Exam Complete: Yes Emergency Medical Condition: Yes Medical Record Reviewed: Yes Differential Diagnosis Otitis media versus otitis externa versus viral URI versus sinusitis versus allergic rhinitis Narrative Course 57-year-old female presents to the emergency department for evaluation of right ear pain for 2 days. She appears well on exam. No abnormality on exam. Patient is instructed to try [id number] antihistamine or Sudafed and follow-up with her primary care physician. The patient was discharged in stable condition with instructions, including return instructions and follow up instructions. Diagnosis Primary Impression: Eustachian tube dysfunction Qualified Codes: H69.81 - Other specified disorders of eustachian tube, right ear Referrals: Primary Care Physician call for appointment Patient Instructions: Eustachian Tube Dysfunction (GEN), General Instructions Additional Instructions: [id number] Sudafed or antihistamine. Follow-up with a primary care physician. Return to the emergency department for any acute worsening of symptoms. Med/Other Pt SpecificInfo: No Change to Meds Disposition: 01 DISCHARGE HOME Condition: Stable Elizabeth Gallagher February 15, 2018 10:03
== END 2018-02-15 10:18 | disposition home or self-care (01) ==
LOC: PHEFT 09:48
DX: H69.81 Other specified disorders of Eustachian tube, right ear (principal); F32.9 Major depressive disorder, single episode, unspecified; E78.00 Pure hypercholesterolemia, unspecified; K21.9 Gastro-esophageal reflux disease without esophagitis; F41.0 Panic disorder [episodic paroxysmal anxiety]; G47.30 Sleep apnea, unspecified; F17.200 Nicotine dependence, unspecified, uncomplicated; Z86.69 Personal history of other diseases of the nervous system and sense organs; Z79.899 Other long term (current) drug therapy
CPT/HCPCS: 99282